=== PATIENT | male | born 1980 | race Caucasian/White ===

== ENCOUNTER 2024-02-27 02:23 | Emergency (ER) | payer SELFPAY ==
[2024-02-27 02:28] VITALS: BP 143/87; PULSE 86; RESP 20; TEMP 37.1; O2SAT 98; BMI 31.1
[2024-02-27 02:55] LABS: Charge for UA Resulting for Rev
[2024-02-27 02:58] LABS: Bilirubin Urine Negative (Negative); Blood Urine Negative (Negative); Glucose Urine UA Negative (Normal); Ketones Urine Trace (Negative); Leukocyte Esterase Urine Negative (Negative); Nitrate Urine Negative (Negative); Protein Urine Negative (Negative); Specific Gravity, Urine 1.024 (1.005-1.030); Urine Appearance Clear (CLEAR); Urine Color Yellow (Yellow); pH Urine 6.5 (5-7)
[2024-02-27 03:03] LABS: Bacteria Urine None Seen /hpf; Hyaline Casts Urine 0.81 /lpf; RBC Urine 0-2 /hpf (0-2); Squamous Epithelial Cell Urine 0-5 /hpf (0-5); WBC Urine 0-5 /hpf (0-5)
[2024-02-27 03:06] LABS: Amphetamines Screen Urine Negative (Negative); Barbiturates Screen Urine Negative (Negative); Benzodiazepines Screen Urine Negative (Negative); Cocaine Screen Urine Negative (Negative); Opiate Screen Urine Negative (Negative); PCP Screen Urine Negative (Negative); THC Screen Urine Negative (Negative)
[2024-02-27 03:50] LABS: Basophils # 0.1 10^3/uL (0.0-0.1); Basophils % 0.8 %; Eosinophils % 0.1 %; Hematocrit 46.1 % (37-53); Lymphocytes # 1.9 10^3/uL (0.8-4.8); Lymphocytes % 22.9 %; Mean Corpuscular HGB Conc 33.2 g/dL (30-55); Mean Corpuscular Hemoglobin 29.4 pg (27-33); Mean Corpuscular Volume 88.7 fl (82-101); Mean Platelet Volume 11.3 fL (7.4-10.4); Monocytes # 0.6 10^3/uL (0.2-0.9); Monocytes % 7.6 %; Neutrophils # 5.67 10^3/uL (1.8-7.7); Neutrophils % 68.1 %; Nucleated Red Blood Cells % 0 %; Platelet Count 297 10^3/cmm (157-399); Red Cell Distribution Width 12.3 % (12.1-15.1); White Blood Count 8.33 10^3/uL (3.29-11.43)
[2024-02-27 04:16] LABS: Alanine Aminotransferase 16 U/L (0-41); Albumin Level 4.1 g/dL (3.5-5.2); Alkaline Phosphatase 98 U/L (40-130); Anion Gap 17.6 (5-19); Aspartate Amino Transferase 16 U/L (0-40); Blood Urea Nitrogen 14 mg/dL (6-20); Calcium 8.6 mg/dL (8.5-10.5); Carbon Dioxide 22 mmol/L (22-29); Chloride 103 mmol/L (98-107); Creatinine Clr Calc Pharmacy 179.2872; Globulin 3.1 g/dL (1.3-4.6); Glomerular Filtration Rate 148.5 mL/min (90-130); Glucose 117 mg/dL (65-115); Osmolality Calculated 290 mOsm/kg (285-295); Potassium 3.6 mmol/L (3.5-5.1); Sodium 139 mmol/L (136-145); Total Bilirubin 0.4 mg/dL (0.15-1.2); Total Protein 7.2 g/dL (6.6-8.7)
[2024-02-27 04:17] LABS: Acetaminophen < 5.0 ug/mL (10-30); Salicylate < 0.3 mg/dL (3-10)
--- NOTE | 2024-02-27 04:40 | PC.NURSE ---
SANDWICHES AND SODA PROVIDED TO PT PER REQUEST, PT DENIES FURTHER NEEDS, NO ACUTE DISTRESS NOTED.
--- NOTE | 2024-02-27 05:14 | W.ED.PSYCHS ---
Documented by User: Leonid Rosado DO 02/27/24 16:02 HPI - Psych General: Chief Complaint: Psychiatric Symptoms Stated Complaint: SI Time Seen by Provider: 02/27/24 03:51 History of Present Illness: 43-year-old male who says that he got out of a neuropsychiatric unit near [place] yesterday. Who presents with continued suicidal ideation he says. At first he says he has no specific plan, but then relates to me something to be with a knife . He states that he was placed on medication and unit, Physical Exam Const: COMMON NORMALS: no acute distress GENERAL APPEARANCE: cooperative; not ill appearing and not frail appearing HENMT: COMMON NORMALS: normocephalic, atraumatic and Normal external nose present HEAD & SCALP: normocephalic and atraumatic FACE & SINUS: normal facial exam and face symmetric NOSE: Normal external nose present Eye: COMMON NORMALS: Equal, round and reactive pupils present and EOMs intact bilaterally PUPIL: Yes Equal, round and reactive pupils present Neck/C-Spine: GENERAL: Yes trachea midline Chest: CHEST: Yes Symmetrical chest wall rise Resp: COMMON NORMALS: normal respiratory effort, No retractions, No use of accessory muscles and clear to auscultation bilaterally AUSCULTATION: clear to auscultation bilaterally Cardio: COMMON NORMALS: regular rate and regular rhythm RATE: regular rate RHYTHM: regular rhythm GI: COMMON NORMALS: Normal to inspection, nondistended, normoactive bowel sounds present Extremity: COMMON NORMALS: no pedal edema Neuro: BELTRAN COMA SCALE: document GCS findings [place] coma scale eye opening: Spontaneous [place] coma scale verbal response: Orientated [place] coma scale motor response: [place] commands [place] coma scale total score: 15 SENSORY EXAM: Yes extremities (intact) Psych: COMMON NORMALS: speech normal SPEECH: Yes normal speech Skin: COMMON NORMALS: no rashes or lesions noted GENERAL SKIN EXAM: no rashes or lesions noted Course Vital Signs: Vital signs: Vital Signs Temperature 98.8 F 02/27/24 02:28 Pulse Rate 72 02/27/24 08:00 Respiratory Rate 17 02/27/24 08:00 Blood Pressure 143/87 02/27/24 02:28 Pulse Oximetry 98 02/27/24 08:00 Oxygen Delivery Me thod Room Air 02/27/24 08:00 MDM - Psych Medical Decision Making 43-year-old male presenting with suicidal ideation. Medically stable. Laboratory is not remarkable. No beds are available at our facility currently. We will seek neuropsychiatric bed elsewhere. In the differential diagnosis suicidal ideation, significant depression, substance abuse, malingering. Lab Data 02/27/24 03:42 02/27/24 03:42 Laboratory Results WBC 8.33 10^3/uL (3.29-11.43) 02/27/24 03:42 RBC 5.20 10^6/uL (3.85-5.65) 02/27/24 03:42 Hgb 15.30 g/dL (11.27-16.99) 02/27/24 03:42 Hct 46.1 % (37-53) 02/27/24 03:42 MCV 88.7 fl (82-101) 02/27/24 03:42 MCH 29.4 pg (27-33) 02/27/24 03:42 MCHC 33.2 g/dL (30-55) 02/27/24 03:42 RDW 12.3 % (12.1-15.1) 02/27/24 03:42 Plt Count 297 10^3/cmm (157-399) 02/27/24 03:42 MPV 11.3 fL (7.4-10.4) H 02/27/24 03:42 Neut % (Auto) 68.1 % 02/27/24 03:42 Lymph % (Auto) 22.9 % 02/27/24 03:42 [place] % (Auto) 7.6 % 02/27/24 03:42 Eos % (Auto) 0.1 % 02/27/24 03:42 Baso % (Auto) 0.8 % 02/27/24 03:42 Neut # (Auto) 5.67 10^3/uL (1.8-7.7) 02/27/24 03:42 Lymph # (Auto) 1.9 10^3/uL (0.8-4.8) 02/27/24 03:42 [place] # (Auto) 0.6 10^3/uL (0.2-0.9) 02/27/24 03:42 Eos # (Auto) 0.0 10^3/uL (0.0-0.8) 02/27/24 03:42 Baso # (Auto) 0.1 10^3/uL (0.0-0.1) 02/27/24 03:42 Nucleated RBC % (auto) 0 % 02/27/24 03:42 Nucleated RBCs # 0.0 /100WBC 02/27/24 03:42 Sodium 139 mmol/L (136-145) 02/27/24 03:42 Potassium 3.6 mmol/L (3.5-5.1) 02/27/24 03:42 Chloride 103 mmol/L (98-107) 02/27/24 03:42 Carbon Dioxide 22 mmol/L (22-29) 02/27/24 03:42 Anion Gap 17.6 (5-19) 02/27/24 03:42 BUN 14 mg/dL (6-20) 02/27/24 03:42 Creatinine 0.6 mg/dL (0.7-1.2) L 02/27/24 03:42 GFR Calculation 148.5 mL/min (90-130) H 02/27/24 03:42 Glucose 117 mg/dL (65-115) H 02/27/24 03:42 Calculated Osmolality 290 mOsm/kg (285-295) 02/27/24 03:42 Calcium 8.6 mg/dL (8.5-10.5) 02/27/24 03:42 Total Bilirubin 0.4 mg/dL (0.15-1.2) 02/27/24 03:42 AST 16 U/L (0-40) 02/27/24 03:42 ALT 16 U/L (0-41) 02/27/24 03:42 Alkaline Phosphatase 98 U/L (40-130) 02/27/24 03:42 Total Protein 7.2 g/dL (6.6-8.7) 02/27/24 03:42 Albumin 4.1 g/dL (3.5-5.2) 02/27/24 03:42 Globulin 3.1 g/dL (1.3-4.6) 02/27/24 03:42 TSH 0.96 uIU/mL (0.27-4.20) 02/27/24 06:03 Urine Color Yellow (Yellow) 02/27/24 02:30 Urine Appearance Clear (CLEAR) 02/27/24 02:30 Urine pH 6.5 (5-7) 02/27/24 02:30 Ur Specific [place] 1.024 (1.005-1.030) 02/27/24 02:30 Urine Protein Negative (Negative) 02/27/24 02:30 Urine Glucose (UA) Negative (Normal) 02/27/24 02:30 Urine Ketones Trace (Negative) 02/27/24 02:30 Urine Blood Negative (Negative) 02/27/24 02:30 Urine Nitrate Negative (Negative) 02/27/24 02:30 Urine Bilirubin Negative (Negative) 02/27/24 02:30 Urine Urobilinogen 1.0 mg/dL (Negative) 02/27/24 02:30 Ur Leukocyte Esterase Negative (Negative) 02/27/24 02:30 Urine RBC 0-2 /hpf (0-2) 02/27/24 02:30 Urine WBC 0-5 /hpf (0-5) 02/27/24 02:30 Ur Squamous Epith Cells 0-5 /hpf (0-5) 02/27/24 02:30 Amorphous Sediment Not Reportable 02/27/24 02:30 Urine Bacteria None seen /hpf (NONE) 02/27/24 02:30 Hyaline Casts 0.81 /lpf 02/27/24 02:30 Salicylates < 0.3 mg/dL (3-10) L 02/27/24 03:42 Urine Opiates Screen Negative ng/mL (Negative) 02/27/24 02:30 Acetaminophen < 5.0 ug/mL (10-30) L 02/27/24 03:42 Ur Barbiturates Screen Negative ng/mL (Negative) 02/27/24 02:30 Ur Phencyclidine Scrn Negative ng/mL (Negative) 02/27/24 02:30 Ur Amphetamines Screen Negative ng/mL (Negative) 02/27/24 02:30 U Benzodiazepines Scrn Negative ng/mL (Negative) 02/27/24 02:30 Urine Cocaine Screen Negative ng/mL (Negative) 02/27/24 02:30 U Marijuana (THC) Screen Negative ng/mL (Negative) 02/27/24 02:30 Ethyl Alcohol < 10 mg/dL (0-10) 02/27/24 06:03 Influenza Type A Ag Negative (Negative) 02/27/24 06:17 Influenza Type B Ag Negative (Negative) 02/27/24 06:17 RSV Antigen Negative (Negative) 02/27/24 06:17 SARS-CoV-2 Ag (Rapid) negative (Negative) 02/27/24 06:17 Discharge Plan Discharge Patient Disposition: er Psychiatric Hosp Clinical Impression: Suicidal ideation, Depression Condition: Stable Sign Out Sign Out Data: Patient Sign Out occurred on 02/27/24 at 08:14. Patient's care was discussed, and care was transferred from Leonid Rosado DO to Riki Gandhi DO. Coding Level of Care Code ED Radio Journalist for Chg Fwd Documented by User: Riki Gandhi DO 02/27/24 13:40 HPI - Psych General: Chief Complaint: Psychiatric Symptoms Stated Complaint: SI Time Seen by Provider: 02/27/24 03:51 Physical Exam Neuro: BELTRAN COMA SCALE: document GCS findings [place] coma scale total score: 15 Course Vital Signs: Vital signs: Vital Signs Temperature 98.8 F 02/27/24 02:28 Pulse Rate 72 02/27/24 08:00 Respiratory Rate 17 02/27/24 08:00 Blood Pressure 143/87 02/27/24 02:28 Pulse Oximetry 98 02/27/24 08:00 Oxygen Delivery Me thod Room Air 02/27/24 08:00 MDM - Psych Medical Decision Making 43-year-old male presenting with suicidal ideation. Medically stable. Laboratory is not remarkable. No beds are available at our facility currently. We will seek neuropsychiatric bed elsewhere. In the differential diagnosis suicidal ideation, significant depression, substance abuse, malingering. Care assumed at change of shift. Patient is medically stable he is expressing suicidal ideation. We do not have any beds available at our facility. Agreeable to admission or transfer to [facility] in [place] via [facility]. Lab Data 02/27/24 03:42 02/27/24 03:42 Laboratory Results WBC 8.33 10^3/uL (3.29-11.43) 02/27/24 03:42 RBC 5.20 10^6/uL (3.85-5.65) 02/27/24 03:42 Hgb 15.30 g/dL (11.27-16.99) 02/27/24 03:42 Hct 46.1 % (37-53) 02/27/24 03:42 MCV 88.7 fl (82-101) 02/27/24 03:42 MCH 29.4 pg (27-33) 02/27/24 03:42 MCHC 33.2 g/dL (30-55) 02/27/24 03:42 RDW 12.3 % (12.1-15.1) 02/27/24 03:42 Plt Count 297 10^3/cmm (157-399) 02/27/24 03:42 MPV 11.3 fL (7.4-10.4) H 02/27/24 03:42 Neut % (Auto) 68.1 % 02/27/24 03:42 Lymph % (Auto) 22.9 % 02/27/24 03:42 [place] % (Auto) 7.6 % 02/27/24 03:42 Eos % (Auto) 0.1 % 02/27/24 03:42 Baso % (Auto) 0.8 % 02/27/24 03:42 Neut # (Auto) 5.67 10^3/uL (1.8-7.7) 02/27/24 03:42 Lymph # (Auto) 1.9 10^3/uL (0.8-4.8) 02/27/24 03:42 [place] # (Auto) 0.6 10^3/uL (0.2-0.9) 02/27/24 03:42 Eos # (Auto) 0.0 10^3/uL (0.0-0.8) 02/27/24 03:42 Baso # (Auto) 0.1 10^3/uL (0.0-0.1) 02/27/24 03:42 Nucleated RBC % (auto) 0 % 02/27/24 03:42 Nucleated RBCs # 0.0 /100WBC 02/27/24 03:42 Sodium 139 mmol/L (136-145) 02/27/24 03:42 Potassium 3.6 mmol/L (3.5-5.1) 02/27/24 03:42 Chloride 103 mmol/L (98-107) 02/27/24 03:42 Carbon Dioxide 22 mmol/L (22-29) 02/27/24 03:42 Anion Gap 17.6 (5-19) 02/27/24 03:42 BUN 14 mg/dL (6-20) 02/27/24 03:42 Creatinine 0.6 mg/dL (0.7-1.2) L 02/27/24 03:42 GFR Calculation 148.5 mL/min (90-130) H 02/27/24 03:42 Glucose 117 mg/dL (65-115) H 02/27/24 03:42 Calculated Osmolality 290 mOsm/kg (285-295) 02/27/24 03:42 Calcium 8.6 mg/dL (8.5-10.5) 02/27/24 03:42 Total Bilirubin 0.4 mg/dL (0.15-1.2) 02/27/24 03:42 AST 16 U/L (0-40) 02/27/24 03:42 ALT 16 U/L (0-41) 02/27/24 03:42 Alkaline Phosphatase 98 U/L (40-130) 02/27/24 03:42 Total Protein 7.2 g/dL (6.6-8.7) 02/27/24 03:42 Albumin 4.1 g/dL (3.5-5.2) 02/27/24 03:42 Globulin 3.1 g/dL (1.3-4.6) 02/27/24 03:42 TSH 0.96 uIU/mL (0.27-4.20) 02/27/24 06:03 Urine Color Yellow (Yellow) 02/27/24 02:30 Urine Appearance Clear (CLEAR) 02/27/24 02:30 Urine pH 6.5 (5-7) 02/27/24 02:30 Ur Specific [place] 1.024 (1.005-1.030) 02/27/24 02:30 Urine Protein Negative (Negative) 02/27/24 02:30 Urine Glucose (UA) Negative (Normal) 02/27/24 02:30 Urine Ketones Trace (Negative) 02/27/24 02:30 Urine Blood Negative (Negative) 02/27/24 02:30 Urine Nitrate Negative (Negative) 02/27/24 02:30 Urine Bilirubin Negative (Negative) 02/27/24 02:30 Urine Urobilinogen 1.0 mg/dL (Negative) 02/27/24 02:30 Ur Leukocyte Esterase Negative (Negative) 02/27/24 02:30 Urine RBC 0-2 /hpf (0-2) 02/27/24 02:30 Urine WBC 0-5 /hpf (0-5) 02/27/24 02:30 Ur Squamous Epith Cells 0-5 /hpf (0-5) 02/27/24 02:30 Amorphous Sediment Not Reportable 02/27/24 02:30 Urine Bacteria None seen /hpf (NONE) 02/27/24 02:30 Hyaline Casts 0.81 /lpf 02/27/24 02:30 Salicylates < 0.3 mg/dL (3-10) L 02/27/24 03:42 Urine Opiates Screen Negative ng/mL (Negative) 02/27/24 02:30 Acetaminophen < 5.0 ug/mL (10-30) L 02/27/24 03:42 Ur Barbiturates Screen Negative ng/mL (Negative) 02/27/24 02:30 Ur Phencyclidine Scrn Negative ng/mL (Negative) 02/27/24 02:30 Ur Amphetamines Screen Negative ng/mL (Negative) 02/27/24 02:30 U Benzodiazepines Scrn Negative ng/mL (Negative) 02/27/24 02:30 Urine Cocaine Screen Negative ng/mL (Negative) 02/27/24 02:30 U Marijuana (THC) Screen Negative ng/mL (Negative) 02/27/24 02:30 Ethyl Alcohol < 10 mg/dL (0-10) 02/27/24 06:03 Influenza Type A Ag Negative (Negative) 02/27/24 06:17 Influenza Type B Ag Negative (Negative) 02/27/24 06:17 RSV Antigen Negative (Negative) 02/27/24 06:17 SARS-CoV-2 Ag (Rapid) negative (Negative) 02/27/24 06:17 No radiology studies performed this visit Discharge Plan Discharge Patient Disposition: Xfer Psychiatric Hosp Clinical Impression: Suicidal ideation, Depression Condition: Stable Sign Out Sign Out Data: Patient Sign Out occurred on 02/27/24 at 08:14. Patient's care was discussed, and care was transferred from Leonid Rosado DO to Riki Gandhi DO. Coding Level of Care Code ED Radio Journalist for Ami Gunter
--- NOTE | 2024-02-27 05:54 | ECG_ITS ---
[facility] Test Date: 2024-02-27 Pat Name: Herman Edmond Department: Room: Gender: Male Pst Specialist: : 1980 Requested By: Leonid Tolliver Order Number: [id number] Adriana MD: Jh Abdi M.D. Measurements Intervals [place] Rate: 76 P: 51 MT: 156 QRS: 43 QRSD: 112 T: 61 QT: 382 QTc: 430 Interpretive Statements SINUS RHYTHM WITH SINUS ARRHYTHMIA POSSIBLE RIGHT VENTRICULAR CONDUCTION DELAY [RSR (QR) IN V1/V2] SEPTAL MYOCARDIAL INFARCTION , PROBABLY OLD [40+ ms Q WAVE IN V1/V2] No previous ECG available for comparison Electronically Signed On 02-27-2024 7:20:44 CDT by Jh Abdi M.D. [id number]
[2024-02-27 06:37] LABS: Thyroid Stimulating Hormone 0.96 uIU/mL (0.27-4.20)
[2024-02-27 06:38] LABS: Alcohol Level < 10 mg/dL (0-10)
[2024-02-27 06:45] LABS: SARS Covid-2 Antigen negative (Negative)
[2024-02-27 06:51] LABS: Influenza A by IFA Negative (Negative); Influenza B by IFA Negative (Negative)
[2024-02-27 06:52] LABS: RSV Transfer Patient (ED) Negative (Negative)
[2024-02-27 08:00] VITALS: PULSE 72; RESP 17; O2SAT 98
--- NOTE | 2024-02-27 11:11 | PC.NURSE ---
pt resting in room 9, AOx4, verbally states will go to [facility] in [place] for placement, pt signed voluntary form sent by [facility]
--- NOTE | 2024-02-27 12:13 | PC.NURSE ---
Report called to Yessi Bowden RN at [facility], no further questions. pt updated with status of transfer.
[2024-02-27 17:53] VITALS: BP 122/92; PULSE 83; TEMP 36.7; O2SAT 97
[2024-02-28 04:00] VITALS: BP 124/67; PULSE 77; RESP 16; O2SAT 97
== END 2024-02-28 07:44 ==
PROVIDERS: Emergency Medicine; Emergency Provider Family Medicine
DX: R45.851 Suicidal ideations (principal); F32.A Depression, unspecified; Z11.52 Encounter for screening for COVID-19
CPT/HCPCS: 36415; 80053; 80306; 80307; 81003; 81015; 84443; 85025; 87426; 87804; 87899; 93005; 99285

== ENCOUNTER 2024-03-03 14:23 | Inpatient (IN) | payer BC, SELFPAY ==
[2024-03-03 14:32] VITALS: BP 133/89; PULSE 105; RESP 16; TEMP 36.9; O2SAT 96; BMI 31.9
--- NOTE | 2024-03-03 15:05 | W.ED.PSYCHS ---
HPI - Psych General: Chief Complaint: Psychiatric Symptoms Stated Complaint: SI Time Seen by Provider: 03/03/24 14:51 Mode of arrival: ambulatory Limitations: no limitations History of Present Illness: 43-year-old male 43-year-old male who states that has been having suicidal ideations over the last 2 weeks he states that he has a plan of cutting his wrist with a knife. He was recently admitted to [facility] he denies any worsening proving factors. Patient is currently on Prozac Associated symptoms: Reports depression and suicidal ideation Related Data Allergies Allergy/AdvReac Type Severity Reaction Status Date / Time No Known Allergies Allergy Verified 03/03/24 14:36 Review of Systems Const: Denies: fever(s), chills, body aches or change in appetite ENMT: Denies: throat pain or dental pain Card: Denies: chest pain Resp: Denies: dyspnea GI: Denies: abdominal pain, nausea, vomiting or diarrhea Musc: Denies: neck pain or back pain Skin/Breast: Denies: rash Neuro: Denies: headache(s) Psych: Reports: depression and suicidal ideation Physical Exam Const: COMMON NORMALS: no acute distress, patient oriented x3 and healthy appearing HENMT: COMMON NORMALS: normocephalic and atraumatic HEAD & SCALP: normocephalic and atraumatic Neck/C-Spine: COMMON NORMALS: full ROM and supple Chest: COMMONS NORMALS: normal inspection of the chest Resp: COMMON NORMALS: normal respiratory effort Cardio: COMMON NORMALS: regular rate, regular rhythm and No murmurs present (Cardio) RATE: regular rate RHYTHM: regular rhythm Extremity: COMMON NORMALS: normal to inspection and full ROM Neuro: COMMON NORMALS: patient oriented x3, moves all extremities and no focal motor deficits Psych: COMMON NORMALS: mental status grossly normal, Normal thought process present and cooperative MOOD & AFFECT: Yes depressed mood THOUGHT PROCESS: Normal thought process present THOUGHT CONTENT: Yes Suicidality present Skin: COMMON NORMALS: no rashes or lesions noted and no wounds GENERAL SKIN EXAM: no rashes or lesions noted Course Vital Signs: Vital signs: Vital Signs Temperature 98.4 F 03/03/24 14:32 Pulse Rate 105 H 03/03/24 14:32 Respiratory Rate 16 03/03/24 14:32 Blood Pressure 133/89 03/03/24 14:32 Pulse Oximetry 96 03/03/24 14:32 Oxygen Delivery Me thod Room Air 03/03/24 14:32 MDM - Psych Medical Decision Making Patient presents for suicidal ideations he is placed on a 96-hour hold he is medically cleared I did speak to psychiatrist will admit at this time Medical Records I reviewed the patient's medical records. Lab Data I reviewed the patient's lab results. 03/03/24 15:44 03/03/24 15:44 Laboratory Results WBC 8.26 10^3/uL (3.29-11.43) 03/03/24 15:44 RBC 5.33 10^6/uL (3.85-5.65) 03/03/24 15:44 Hgb 15.90 g/dL (11.27-16.99) 03/03/24 15:44 Hct 48.2 % (37-53) 03/03/24 15:44 MCV 90.4 fl (82-101) 03/03/24 15:44 MCH 29.8 pg (27-33) 03/03/24 15:44 MCHC 33.0 g/dL (30-55) 03/03/24 15:44 RDW 12.8 % (12.1-15.1) 03/03/24 15:44 Plt Count 258 10^3/cmm (157-399) 03/03/24 15:44 MPV 11.9 fL (7.4-10.4) H 03/03/24 15:44 Neut % (Auto) 57.7 % 03/03/24 15:44 Lymph % (Auto) 27.2 % 03/03/24 15:44 [place] % (Auto) 11.7 % 03/03/24 15:44 Eos % (Auto) 2.3 % 03/03/24 15:44 Baso % (Auto) 0.6 % 03/03/24 15:44 Neut # (Auto) 4.76 10^3/uL (1.8-7.7) 03/03/24 15:44 Lymph # (Auto) 2.3 10^3/uL (0.8-4.8) 03/03/24 15:44 [place] # (Auto) 1.0 10^3/uL (0.2-0.9) H 03/03/24 15:44 Eos # (Auto) 0.2 10^3/uL (0.0-0.8) 03/03/24 15:44 Baso # (Auto) 0.1 10^3/uL (0.0-0.1) 03/03/24 15:44 Nucleated RBC % (auto) 0 % 03/03/24 15:44 Nucleated RBCs # 0.0 /100WBC 03/03/24 15:44 Urine Opiates Screen Negative ng/mL (Negative) 03/03/24 14:55 Ur Barbiturates Screen Negative ng/mL (Negative) 03/03/24 14:55 Ur Phencyclidine Scrn Negative ng/mL (Negative) 03/03/24 14:55 Ur Amphetamines Screen Negative ng/mL (Negative) 03/03/24 14:55 U Benzodiazepines Scrn Negative ng/mL (Negative) 03/03/24 14:55 Urine Cocaine Screen Negative ng/mL (Negative) 03/03/24 14:55 U Marijuana (THC) Screen Negative ng/mL (Negative) 03/03/24 14:55 No radiology studies performed this visit Discharge Plan Discharge Patient Disposition: Admitted As Inpatient Admit Provider: Pedro Navarro Clinical Impression: Suicidal ideation Condition: Stable Coding Level of Care Code ED Customer Service And Sales Consultant for Ami Gunter
[2024-03-03 15:35] LABS: Amphetamines Screen Urine Negative (Negative); Barbiturates Screen Urine Negative (Negative); Benzodiazepines Screen Urine Negative (Negative); Cocaine Screen Urine Negative (Negative); Opiate Screen Urine Negative (Negative); PCP Screen Urine Negative (Negative); THC Screen Urine Negative (Negative)
[2024-03-03 16:06] LABS: Basophils # 0.1 10^3/uL (0.0-0.1); Basophils % 0.6 %; Eosinophils # 0.2 10^3/uL (0.0-0.8); Eosinophils % 2.3 %; Hematocrit 48.2 % (37-53); Lymphocytes # 2.3 10^3/uL (0.8-4.8); Lymphocytes % 27.2 %; Mean Corpuscular Hemoglobin 29.8 pg (27-33); Mean Corpuscular Volume 90.4 fl (82-101); Mean Platelet Volume 11.9 fL (7.4-10.4); Monocytes % 11.7 %; Neutrophils # 4.76 10^3/uL (1.8-7.7); Neutrophils % 57.7 %; Nucleated Red Blood Cells % 0 %; Platelet Count 258 10^3/cmm (157-399); Red Blood Count 5.33 10^6/uL (3.85-5.65); Red Cell Distribution Width 12.8 % (12.1-15.1); White Blood Count 8.26 10^3/uL (3.29-11.43)
[2024-03-03 16:25] LABS: Alanine Aminotransferase 13 U/L (0-41); Albumin Level 4.5 g/dL (3.5-5.2); Alkaline Phosphatase 93 U/L (40-130); Anion Gap 16.4 (5-19); Aspartate Amino Transferase 18 U/L (0-40); Blood Urea Nitrogen 16 mg/dL (6-20); Calcium 9.1 mg/dL (8.5-10.5); Carbon Dioxide 23 mmol/L (22-29); Chloride 107 mmol/L (98-107); Creatinine Clr Calc Pharmacy 217.6394; Glomerular Filtration Rate 183.2 mL/min (90-130); Glucose 108 mg/dL (65-115); Osmolality Calculated 296 mOsm/kg (285-295); Potassium 4.4 mmol/L (3.5-5.1); Sodium 142 mmol/L (136-145); Total Bilirubin 0.4 mg/dL (0.15-1.2); Total Protein 7.5 g/dL (6.6-8.7)
[2024-03-03 16:30] LABS: Acetaminophen < 5.0 ug/mL (10-30); Alcohol Level < 10 mg/dL (0-10); Salicylate < 0.3 mg/dL (3-10)
--- NOTE | 2024-03-03 16:37 | PC.NURSE ---
96 hr rights reviewed with patient @1603 with assistance of PUPIL PERSONNEL SERVICES DIRECTORENDY Parker. All education reviewed with patient. No verbalized questions or concerns at this time. Patient copy left @bedside with patient. No needs at this time.
[2024-03-03 16:41] VITALS: BP 115/78; PULSE 98; O2SAT 95
[2024-03-03 16:59] VITALS: BP 135/84; PULSE 98; RESP 18; TEMP 36.7; O2SAT 96
--- NOTE | 2024-03-03 17:57 | PC.NURSE ---
Patient denies avh and hi. He initially denied si, but quickly changed his answer to yes. Denied any plan at this time. When asked if anything had changed or had triggered this he stated that he thinks it's because he recently got out of jail and is on parole for a domestic violence charge. Patient was very evasive when asked questions about his living situation. He eventually stated, I was living in a tent...no. I don't have a home. 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 This RN asked him if he ever drank alcohol and he said he did. He was then asked when he last drank to which he replied, about 15 minutes ago. This RN asked what he drank and he stated, 2 cokes. Patient appeared to have trouble with his train of thought as he would often go back to a question that had been asked much earlier in the assessment. He answered some questions inappropriately as if he was not fully listening or was distracted. It was noted that he had a rash throughout his abdomen and his buttocks. Patient said it did not itch and there was no visible oozing and the rash was not raised. He told staff he had been in the [facility]. This RN instructed him to let staff know if the rash became itchy, spread, or began oozing at all.
[2024-03-03 19:36] VITALS: BP 119/84; PULSE 90; RESP 18; TEMP 36.6; O2SAT 96
[2024-03-04 06:00] VITALS: BP 124/83; PULSE 82; RESP 16; TEMP 36.5; O2SAT 97
[2024-03-04] MEDS: nicotine 2 mg Gum BUCCAL ×2 (08:22→17:11)
[2024-03-04] MEDS: hyDROXYzine 25 mg Capsule 50 MG PO ×2 (09:23→20:21)
[2024-03-04] MEDS: fluoxetine 10 mg Capsule PO (09:23)
--- NOTE | 2024-03-04 09:24 | PC.NURSE ---
Patient reports anxiety 12/06. Administered vistaril 50mg PO to patient. Will continue to monitor.
--- NOTE | 2024-03-04 13:29 | W.PM.NPUH&PS ---
Providers/Chief Complaint Admitting Physician: Pedro Navarro MD Chief Complaint: SI HPI NPU History of Present Illness Herman Edmond Sr is a 43 year old male who presented to the emergency department with the following report: Chief Complaint: Psychiatric Symptoms Stated Complaint: SI Time Seen by Provider: 03/03/24 14:51 Mode of arrival: ambulatory Limitations: no limitations History of Present Illness: 43-year-old male 43-year-old male who states that has been having suicidal ideations over the last 2 weeks he states that he has a plan of cutting his wrist with a knife. He was recently admitted to [facility] he denies any worsening proving factors. Patient is currently on Prozac Associated symptoms: Reports depression and suicidal ideation. He was admitted to the neuropsychiatric unit for definitive treatment of those issues. He presents today unknown to the inpatient or outpatient services from any recent encounters. No known inpatient services here. He presents today reporting: Chief complaint The patient is struggling with feelings of paranoia and depression, and is having difficulty adjusting to society after being released from intermediate. He is also experiencing sleep issues. History of the present complaint The patient, a 43-year-old male, presented with a history of depression and anxiety, which he reported began after his release from intermediate. He has been struggling with adjusting to society after being incarcerated for 6.5 years. He has been hospitalized three times in the past three weeks due to suicidal ideation. The patient reported feeling paranoid and expressed a belief that everyone is out to get him. However, he denied experiencing hallucinations or hearing voices. He also mentioned experiencing nightmares related to his time in intermediate. In terms of medication, the patient reported currently taking Prozac and Vistaril. He also mentioned previous use of a medication he referred to as Closet becker, which the doctor identified as possibly being clozapine or clonazepam. He also mentioned previous use of benzodiazepines. He expressed a desire for a recommendation for a good sleeping medication, as he has been struggling with sleep. The patient reported a history of substance use, including tobacco and alcohol. He mentioned having been in rehab once and having had a few DUIs. However, he reported that he has been abstaining from alcohol for several years now. The patient also mentioned a significant event in his life, the loss of a pair of expensive earbuds, which seemed to have a significant emotional impact on him. He did not elaborate on why this event was so impactful, but he brought it up multiple times during the consultation. In terms of his personal life, the patient reported having been once and having two adult sons. He mentioned that he had been in contact with his sons recently. He also mentioned experiencing significant changes in his life since his release from intermediate, including the of his grandmother. The patient reported having no known allergies to medication. He expressed a desire for a recommendation for a good sleeping medication, as he has been struggling with sleep. He also expressed a desire for a recommendation for a medication to help with his feelings of paranoia. The doctor suggested starting him on Ambega and continuing with his current medications, Prozac and Vistaril. The doctor also suggested giving him Trazodone for his sleep issues. Mental health history The patient has a history of depression and anxiety, which began after his release from intermediate. He has been hospitalized three times in the past three weeks due to suicidal ideation. He has been on Prozac and Vistaril, and has previously taken benzodiazepines for anxiety. He has also been on a mood stabilizer, possibly Clozapine. He has a history of outpatient treatment with a counselor or therapist. Social history The patient has a history of tobacco use and has previously struggled with alcohol consumption. He has been in rehab once and has had several DUIs. He has been incarcerated multiple times, with the longest sentence being 6.5 years. He has been homeless since his release from intermediate. He has held a job for four years in the past, working at a [employer] plant. He has two biological children with whom he maintains a relationship. Meds NPU Home Medications Medication Instructions Recorded Confirmed Last Taken Type No Known Home Medications 03/04/24 03/04/24 Unknown History Allergies Allergy/AdvReac Type Severity Reaction Status Date / Time No Known Allergies Allergy Verified 03/03/24 14:36 Mental Status Exam MSE Comments: This is an obese white male in hospital scrubs with limited grooming and eye contact. No abnormal movements except for mild psychomotor agitation. Cooperative with exam in mild to moderate distress. Speech was mostly decreased rate and volume. Mood described as a little down, affect slightly odd and guarded. Thought process was linear and mostly organized. Thought content: Patient denied suicidal or homicidal ideation , there were no delusions reported but concerns for paranoid or persecutory delusions noted, he denied auditory and visual hallucinations. The patient exhibits signs of depression and paranoia. He denies any hallucinations or delusions. He reports feeling like people are out to get him Attention and concentration were intact and memory appeared mostly reliable but none were formally tested. He is alert and oriented x 3. Insight and judgment limited, impulse control is limited. Vitals/I&O/Wt Last Vital Signs Temp 97.7 F 03/04/24 06:00 Pulse 82 03/04/24 06:00 Resp 16 03/04/24 06:00 BP 124/83 03/04/24 06:00 Pulse Ox 97 03/04/24 06:00 O2 Del Method Room Air 03/04/24 06:00 Weight last 48 hrs Weight 95.254 kg Data NPU 03/03/24 15:44 03/03/24 15:44 A&P Assessment and plan (1) Suicidal ideation: (2) Depression: (3) Paranoia: (4) Psychosis: Plan This is a 43-year-old white male who presented denying significant mental health history till recently possibly. The patient is struggling with significant mental health issues, including depression, anxiety, and paranoia. These issues appear to have been exacerbated by his recent release from intermediate and his difficulty adjusting to society. His sleep issues may be a symptom of his mental health issues or a separate issue that needs to be addressed. He is also homeless and some of his behavior may be consistent with malingering. 1. Consider antipsychotic. Consider Invega. 2. Continue every 15 minute checks for safety. 3. Encourage individual, group and milieu therapies. 4. Obtain collateral information on what his baseline actually is. 5. Encourage sober living treatment after discharge at the highest level of care to which he is willing to commit. Involuntary Hold Information 96 Hour Hold: 96 Hour Involuntary Admission: Yes 96 Hour Hold Ending Date: 03/09/24 96 Hour Hold Ending Time: 15:00 Attestations NPU Medical Necessity Statement*: Inpatient hospitalization is medically necessary and the clinically appropriate intervention at this time. We will monitor medication to make changes as indicated. Patient will be in the hospital for over two midnights. His likely length of stay 3-5 days. Coding Level of Care Code Acute Code for [facility] Fw Diagnoses Suicidal ideation R45.851 Depression F32.A Paranoia F22 Psychosis F29
[2024-03-04 13:48] VITALS: BP 124/82; PULSE 77; RESP 18; TEMP 36.6; O2SAT 97
[2024-03-04] MEDS: acetaminophen 325 mg Tablet 650 MG PO (14:14)
[2024-03-04] MEDS: ibuprofen 600 mg Tablet PO (16:58)
[2024-03-04 20:15] VITALS: BP 133/68; PULSE 74; RESP 18; TEMP 36.6; O2SAT 99
[2024-03-04] MEDS: OLANZapine 10 mg TABLET 15 MG PO (20:21)
[2024-03-05] MEDS: acetaminophen 325 mg Tablet 650 MG PO (04:39)
[2024-03-05 06:00] VITALS: BP 134/77; PULSE 58; RESP 18; TEMP 36.6; O2SAT 95
--- NOTE | 2024-03-05 06:56 | P.NPUPN_ITS ---
Subjective NPU 2 Subjective: Patient present today reporting that he is doing okay. He denied any issues with the Invega thus far. He denied any side effects to the medication we talked about medications that might assist him with his sleep. He brought up the possibility of sober living treatment including [facility]. We discussed that the social work team would be here on Thursday and they can assist him in filling out applications for possible facilities. Mental Status Exam 2 MSE Comments: This is an obese white male in hospital scrubs with limited grooming and eye contact. No abnormal movements except for mild psychomotor agitation. Cooperative with exam in mild to moderate distress. Speech was mostly decreased rate and volume. Mood described as a little down, affect slightly odd and guarded. Thought process was linear and mostly organized. Thought content: Patient denied suicidal or homicidal ideation , there were no delusions reported but concerns for paranoid or persecutory delusions noted, he denied auditory and visual hallucinations. The patient exhibits signs of depression and paranoia. He denies any hallucinations or delusions. He reports feeling like people are out to get him Attention and concentration were intact and memory appeared mostly reliable but none were formally tested. He is alert and oriented x 3. Insight and judgment limited, impulse control is limited. Vitals/I&O/Wt Last Vital Signs Temp 97.8 F 03/05/24 06:00 Pulse 58 L 03/05/24 06:00 Resp 18 03/05/24 06:00 BP 134/77 03/05/24 06:00 Pulse Ox 95 03/05/24 06:00 O2 Del Method Room Air 03/04/24 13:48 Weight last 48 hrs Weight 95.254 kg Data NPU 03/03/24 15:44 03/03/24 15:44 A&P Assessment and plan (1) Suicidal ideation: (2) Depression: (3) Paranoia: (4) Psychosis: Plan This is a 43-year-old white male who presented denying significant mental health history till recently possibly. The patient is struggling with significant mental health issues, including depression, anxiety, and paranoia. These issues appear to have been exacerbated by his recent release from detention and his difficulty adjusting to society. His sleep issues may be a symptom of his mental health issues or a separate issue that needs to be addressed. He is also homeless and some of his behavior may be consistent with malingering. 1. Started Invega 6 mg p.o. daily. 2. Continue every 15 minute checks for safety. 3. Encourage individual, group and milieu therapies. 4. Obtain collateral information on what his baseline actually is. 5. Encourage sober living treatment after discharge at the highest level of care to which he is willing to commit. Patient interested in working with social work team on Thursday to consider sober living treatment. Involuntary Hold Information 2 96 Hour Hold: 96 Hour Involuntary Admission: Yes 96 Hour Hold Ending Date: 03/09/24 96 Hour Hold Ending Time: 15:00 Attestations NPU 2 Medical Necessity Statement*: Inpatient hospitalization is medically necessary and the clinically appropriate intervention at this time. We will monitor medication to make changes as indicated. His likely length of stay 3-5 days. Coding Level of Care Code Acute Code for [facility] Fwd Diagnoses Suicidal ideation R45.851 Depression F32.A Paranoia F22 Psychosis F29
[2024-03-05] MEDS: ibuprofen 600 mg Tablet PO ×2 (07:27→16:31)
[2024-03-05] MEDS: nicotine 2 mg Gum BUCCAL ×2 (08:04→14:26)
[2024-03-05] MEDS: fluoxetine 10 mg Capsule PO (08:04)
[2024-03-05] MEDS: paliperidone ER 6 mg Tablet PO (13:15)
[2024-03-05 14:00] VITALS: BP 131/86; PULSE 84; RESP 16; TEMP 36.5; O2SAT 96
--- NOTE | 2024-03-05 14:27 | PC.NURSE ---
Pt was hesitant to take the Invega 6mg tab that was prescribed to him. Pt stated that he would take the medication if it was prescribed by a Real Doctor. Pt states that in other facilities there were fake doctors that prescribed pills to him. Pt was educated on this medication and pt agreed to take the scheduled dose.
[2024-03-05 19:47] VITALS: BP 129/80; PULSE 69; RESP 16; TEMP 36.3; O2SAT 97
[2024-03-05] MEDS: OLANZapine 10 mg TABLET 15 MG PO (20:21)
[2024-03-06] MEDS: ibuprofen 600 mg Tablet PO ×2 (04:35→18:20)
[2024-03-06 06:00] VITALS: BP 127/89; PULSE 79; RESP 18; TEMP 36.4; O2SAT 97
[2024-03-06] MEDS: paliperidone ER 6 mg Tablet PO (08:24)
[2024-03-06] MEDS: fluoxetine 10 mg Capsule PO (08:24)
--- NOTE | 2024-03-06 09:55 | P.NPUPN_ITS ---
Subjective NPU 2 Subjective: Patient presented today reporting that he is doing okay. He reports that he is having some anxiety and we did discuss the risks, benefits and alternatives of initiating propranolol as needed and he understood and agreed to proceed as is documented in this note. He does report that he is tolerating the Invega fine and denied any specific side effects to that. He reports she still having an interest in rehab and we discussed the treatment team returning tomorrow and that they would be able to work with him on those issues. Mental Status Exam 2 MSE Comments: This is an obese white male in hospital scrubs with limited grooming and eye contact. No abnormal movements except for mild psychomotor agitation. Cooperative with exam in mild to moderate distress. Speech was mostly decreased rate and volume. Mood described as a little down, affect slightly odd and guarded. Thought process was linear and mostly organized. Thought content: Patient denied suicidal or homicidal ideation , there were no delusions reported but concerns for paranoid or persecutory delusions noted, he denied auditory and visual hallucinations. The patient exhibits signs of depression and paranoia. He denies any hallucinations or delusions. He reports feeling like people are out to get him Attention and concentration were intact and memory appeared mostly reliable but none were formally tested. He is alert and oriented x 3. Insight and judgment limited, impulse control is limited. Vitals/I&O/Wt Last Vital Signs Temp 97.5 F L 03/06/24 06:00 Pulse 79 03/06/24 06:00 Resp 18 03/06/24 06:00 BP 127/89 03/06/24 06:00 Pulse Ox 97 03/06/24 06:00 O2 Del Method Room Air 03/06/24 06:00 Weight last 48 hrs Weight 97.125 kg Data NPU 03/03/24 15:44 03/03/24 15:44 A&P Assessment and plan (1) Suicidal ideation: (2) Depression: (3) Paranoia: (4) Psychosis: Plan This is a 43-year-old white male who presented denying significant mental health history till recently possibly. The patient is struggling with significant mental health issues, including depression, anxiety, and paranoia. These issues appear to have been exacerbated by his recent release from custodial and his difficulty adjusting to society. His sleep issues may be a symptom of his mental health issues or a separate issue that needs to be addressed. He is also homeless and some of his behavior may be consistent with malingering. 1. Started Invega 6 mg p.o. daily. Initiate propranolol 20 mg p.o. 3 times daily as needed for anxiety. 2. Continue every 15 minute checks for safety. 3. Encourage individual, group and milieu therapies. 4. Obtain collateral information on what his baseline actually is. 5. Encourage sober living treatment after discharge at the highest level of care to which he is willing to commit. Patient interested in working with social work team on Thursday to consider sober living treatment. Involuntary Hold Information 2 96 Hour Hold: 96 Hour Involuntary Admission: Yes 96 Hour Hold Ending Date: 03/09/24 96 Hour Hold Ending Time: 15:00 Attestations NPU 2 Medical Necessity Statement*: Inpatient hospitalization is medically necessary and the clinically appropriate intervention at this time. We will monitor medication to make changes as indicated. His likely length of stay 3-5 days. Coding Level of Care Code Acute Code for [facility] Fw Diagnoses Suicidal ideation R45.851 Depression F32.A Paranoia F22 Psychosis F29
[2024-03-06] MEDS: nicotine 2 mg Gum BUCCAL (13:10)
[2024-03-06 14:00] VITALS: BP 133/90; PULSE 88; RESP 16; TEMP 36.4; O2SAT 96
[2024-03-06 20:04] VITALS: BP 134/91; PULSE 83; RESP 18; TEMP 36.3; O2SAT 97
[2024-03-06] MEDS: OLANZapine 10 mg TABLET 15 MG PO (20:04)
[2024-03-07 06:00] VITALS: BP 132/93; PULSE 79; RESP 18; TEMP 36.6; O2SAT 96
[2024-03-07] MEDS: paliperidone ER 6 mg Tablet PO (08:26)
[2024-03-07] MEDS: fluoxetine 10 mg Capsule PO (08:26)
[2024-03-07 14:00] VITALS: BP 119/83; PULSE 105; RESP 18; TEMP 36.6; O2SAT 95
[2024-03-07] MEDS: ibuprofen 600 mg Tablet PO (18:49)
[2024-03-07 19:19] VITALS: BP 120/88; PULSE 87; RESP 16; TEMP 36.3; O2SAT 96
[2024-03-07] MEDS: nicotine 2 mg Gum BUCCAL (19:26)
[2024-03-07] MEDS: OLANZapine 10 mg TABLET 15 MG PO (20:00)
--- NOTE | 2024-03-07 20:07 | P.NPUPN_ITS ---
Subjective NPU 2 Subjective: Patient presented today reporting that he is doing okay. He reported feeling less of the paranoia and had discussed the possibility of discontinuing the Invega. We discussed the importance of vet and treating his psychosis. We discussed the risks, benefits and alternatives of changing it to bedtime and he understood and agreed to proceed as is documented in this note. We continue to work with the social work team on sober living treatment possibilities. He could not articulate if there was any issue with the Invega as far as side effects that made him consider the change. Mental Status Exam 2 MSE Comments: This is an obese white male in hospital scrubs with limited grooming and eye contact. No abnormal movements except for mild psychomotor agitation. Cooperative with exam in mild to moderate distress. Speech was mostly decreased rate and volume. Mood described as a little down, affect slightly odd and guarded. Thought process was linear and mostly organized. Thought content: Patient denied suicidal or homicidal ideation , there were no delusions reported but concerns for paranoid or persecutory delusions noted, he denied auditory and visual hallucinations. The patient exhibits signs of depression and paranoia. He denies any hallucinations or delusions. He reports feeling like people are out to get him Attention and concentration were intact and memory appeared mostly reliable but none were formally tested. He is alert and oriented x 3. Insight and judgment limited, impulse control is limited. Vitals/I&O/Wt Last Vital Signs Temp 97.4 F L 03/07/24 19:19 Pulse 87 03/07/24 19:19 Resp 16 03/07/24 19:19 BP 120/88 03/07/24 19:19 Pulse Ox 96 03/07/24 19:19 O2 Del Method Room Air 03/07/24 19:19 Weight last 48 hrs Weight 97.125 kg Data NPU 03/03/24 15:44 03/03/24 15:44 A&P Assessment and plan (1) Suicidal ideation: (2) Depression: (3) Paranoia: (4) Psychosis: Plan This is a 43-year-old white male who presented denying significant mental health history till recently possibly. The patient is struggling with significant mental health issues, including depression, anxiety, and paranoia. These issues appear to have been exacerbated by his recent release from shelter and his difficulty adjusting to society. His sleep issues may be a symptom of his mental health issues or a separate issue that needs to be addressed. He is also homeless and some of his behavior may be consistent with malingering. 1. Started Invega 6 mg p.o. daily. Will move Invega to bedtime. Initiated propranolol 20 mg p.o. 3 times daily as needed for anxiety. 2. Continue every 15 minute checks for safety. 3. Encourage individual, group and milieu therapies. 4. Obtain collateral information on what his baseline actually is. 5. Encourage sober living treatment after discharge at the highest level of care to which he is willing to commit. Patient interested in working with social work team on Thursday to consider sober living treatment. Involuntary Hold Information 2 96 Hour Hold: 96 Hour Involuntary Admission: Yes 96 Hour Hold Ending Date: 03/09/24 96 Hour Hold Ending Time: 15:00 Attestations NPU 2 Medical Necessity Statement*: Inpatient hospitalization is medically necessary and the clinically appropriate intervention at this time. We will monitor medication to make changes as indicated. His likely length of stay 2-4 days. Coding Level of Care Code Acute Code for [facility] Fwd Diagnoses Suicidal ideation R45.851 Depression F32.A Paranoia F22 Psychosis F29
[2024-03-08 06:00] VITALS: BP 135/90; PULSE 82; RESP 18; TEMP 36.4; O2SAT 96
[2024-03-08] MEDS: fluoxetine 10 mg Capsule PO (08:15)
[2024-03-08] MEDS: nicotine 2 mg Gum BUCCAL (12:39)
--- NOTE | 2024-03-08 12:59 | P.NPUPN_ITS ---
Subjective NPU 2 Subjective: Patient presented today reporting that he is feeling a little better. Continues to be a little antsy per staff reports and direct observation. However he was happy that he might have an opportunity with [employer] [facility] with an interview tomorrow morning. He is starting to get more focused on the possibility of discharge and we discussed how that might work after the interview. He denied any side effects to the medication. Mental Status Exam 2 MSE Comments: This is an obese white male in hospital scrubs with limited grooming and eye contact. No abnormal movements except for mild psychomotor agitation. Cooperative with exam in mild to moderate distress. Speech was mostly decreased rate and volume. Mood described as a little down, affect slightly odd and guarded. Thought process was linear and mostly organized. Thought content: Patient denied suicidal or homicidal ideation , there were no delusions reported but concerns for paranoid or persecutory delusions noted, he denied auditory and visual hallucinations. The patient exhibits signs of depression and paranoia. He denies any hallucinations or delusions. He reports feeling like people are out to get him Attention and concentration were intact and memory appeared mostly reliable but none were formally tested. He is alert and oriented x 3. Insight and judgment limited, impulse control is limited. Vitals/I&O/Wt Last Vital Signs Temp 97.5 F L 03/08/24 06:00 Pulse 82 03/08/24 06:00 Resp 18 03/08/24 06:00 BP 135/90 03/08/24 06:00 Pulse Ox 96 03/08/24 06:00 O2 Del Method Room Air 03/08/24 06:00 Data NPU 03/03/24 15:44 03/03/24 15:44 A&P Assessment and plan (1) Suicidal ideation: (2) Depression: (3) Paranoia: (4) Psychosis: Plan This is a 43-year-old white male who presented denying significant mental health history till recently possibly. The patient is struggling with significant mental health issues, including depression, anxiety, and paranoia. These issues appear to have been exacerbated by his recent release from intermediate and his difficulty adjusting to society. His sleep issues may be a symptom of his mental health issues or a separate issue that needs to be addressed. He is also homeless and some of his behavior may be consistent with malingering. 1. Started Invega 6 mg p.o. daily. Will move Invega to bedtime. Initiated propranolol 20 mg p.o. 3 times daily as needed for anxiety. 2. Continue every 15 minute checks for safety. 3. Encourage individual, group and milieu therapies. 4. Obtain collateral information on what his baseline actually is. 5. Encourage sober living treatment after discharge at the highest level of care to which he is willing to commit. Patient interested in working with social work team on Thursday to consider sober living treatment. Has a interview with [facility] in the morning. Initiated 21-day hold paperwork. Involuntary Hold Information 2 96 Hour Hold: 96 Hour Involuntary Admission: Yes 96 Hour Hold Ending Date: 03/09/24 96 Hour Hold Ending Time: 15:00 Attestations NPU 2 Medical Necessity Statement*: Inpatient hospitalization is medically necessary and the clinically appropriate intervention at this time. We will monitor medication to make changes as indicated. His likely length of stay 1-3 days. Coding Level of Care Code Acute Code for [facility] Fwd Diagnoses Suicidal ideation R45.851 Depression F32.A Paranoia F22 Psychosis F29
[2024-03-08 14:00] VITALS: BP 115/98; PULSE 103; RESP 16; TEMP 36.8; O2SAT 93
[2024-03-08 19:46] VITALS: BP 133/85; PULSE 74; RESP 16; TEMP 36.4; O2SAT 97
[2024-03-08] MEDS: paliperidone ER 6 mg Tablet PO (20:01)
[2024-03-08] MEDS: OLANZapine 10 mg TABLET 15 MG PO (20:01)
[2024-03-08] MEDS: ibuprofen 600 mg Tablet PO (20:11)
[2024-03-09 06:00] VITALS: BP 134/95; PULSE 77; RESP 16; TEMP 36.3; O2SAT 99
--- NOTE | 2024-03-09 07:31 | P.NPUPN_ITS ---
Subjective NPU 2 Subjective: Patient presented today reporting that he is doing fine. He did have his interview with Samanta Shoes. However he was talking mostly about going to live with his mother and that his mother wants him to come there. We agreed that we would give her a call and identify whether or not she is prepared to be his full solution for discharge. He was vet was pushing for discharge tomorrow. He denied any side effects to medication. We discussed the 21-day hold hearing tomorrow and whether or not that would still happen. Mental Status Exam 2 MSE Comments: This is an obese white male in hospital scrubs with limited grooming and eye contact. No abnormal movements except for mild psychomotor agitation. Cooperative with exam in mild to moderate distress. Speech was mostly decreased rate and volume. Mood described as a little down, affect slightly odd and guarded. Thought process was linear and mostly organized. Thought content: Patient denied suicidal or homicidal ideation , there were no delusions reported but concerns for paranoid or persecutory delusions noted, he denied auditory and visual hallucinations. The patient exhibits signs of depression and paranoia. He denies any hallucinations or delusions. He reports feeling like people are out to get him Attention and concentration were intact and memory appeared mostly reliable but none were formally tested. He is alert and oriented x 3. Insight and judgment limited, impulse control is limited. Vitals/I&O/Wt Last Vital Signs Temp 97.4 F L 03/09/24 06:00 Pulse 77 03/09/24 06:00 Resp 16 03/09/24 06:00 BP 134/95 03/09/24 06:00 Pulse Ox 99 03/09/24 06:00 O2 Del Method Room Air 03/09/24 06:00 Data NPU 03/03/24 15:44 03/03/24 15:44 A&P Assessment and plan (1) Suicidal ideation: (2) Depression: (3) Paranoia: (4) Psychosis: Plan This is a 43-year-old white male who presented denying significant mental health history till recently possibly. The patient is struggling with significant mental health issues, including depression, anxiety, and paranoia. These issues appear to have been exacerbated by his recent release from senior living and his difficulty adjusting to society. His sleep issues may be a symptom of his mental health issues or a separate issue that needs to be addressed. He is also homeless and some of his behavior may be consistent with malingering. 1. Started Invega 6 mg p.o. daily. Will move Invega to bedtime. Initiated propranolol 20 mg p.o. 3 times daily as needed for anxiety. 2. Continue every 15 minute checks for safety. 3. Encourage individual, group and milieu therapies. 4. Obtain collateral information on what his baseline actually is. 5. Encourage sober living treatment after discharge at the highest level of care to which he is willing to commit. Patient interested in working with social work team on Thursday to consider sober living treatment. Has a interview with neal melendez in the morning. Initiated 21-day hold paperwork. 21-day hold hearing tomorrow at 1315. Involuntary Hold Information 2 96 Hour Hold: 96 Hour Involuntary Admission: Yes 96 Hour Hold Ending Date: 03/09/24 96 Hour Hold Ending Time: 15:00 Attestations NPU 2 Medical Necessity Statement*: Inpatient hospitalization is medically necessary and the clinically appropriate intervention at this time. We will monitor medication to make changes as indicated. His likely length of stay 1-3 days. Coding Level of Care Code Acute Code for [facility] Fwd Diagnoses Suicidal ideation R45.851 Depression F32.A Paranoia F22 Psychosis F29
[2024-03-09] MEDS: fluoxetine 10 mg Capsule PO (08:16)
[2024-03-09] MEDS: nicotine 2 mg Gum BUCCAL ×2 (12:28→17:25)
[2024-03-09 14:00] VITALS: BP 119/81; PULSE 87; RESP 16; TEMP 36.6; O2SAT 97
[2024-03-09] MEDS: OLANZapine 10 mg TABLET 15 MG PO (20:15)
[2024-03-09] MEDS: paliperidone ER 6 mg Tablet PO (20:16)
[2024-03-09 20:25] VITALS: BP 98/54; PULSE 92; RESP 18; TEMP 36.4; O2SAT 97
[2024-03-10 06:00] VITALS: BP 124/85; PULSE 87; RESP 16; TEMP 36.4; O2SAT 90
--- NOTE | 2024-03-10 08:23 | PC.NURSE ---
PT CURRENTLY DENIES SI/HI/AH/VH. PT CURRENTLY DENIES ANXIETY. PT ENDORSES DEPRESSION STATING I'M JUST DEPRESSED THAT I AM HERE AGAIN. I WAS TRYING TO GET INTO OUT PATIENT REHAB AND THEY ASKED ABOUT SUICIDE IN MY FAMILY. IT REMINDED ME OF WHEN MY GRANDFATHER SHOT HIMSELF AND I LOST IT. I DON'T WANT TO LOOSE EVERYTHING BECAUSE IM HERE. PT DID NOT RATE HIS DEPRESSION. PT APPEARS PARANOID AND UNCOMFORTABLE AROUND THIS NURSE. THIS NURSE ASKED TO LISTEN TO PT HEART AND LUNGS. PT AGREED AND PT STILL FLINCHED AWAY THE STETHOSCOPE WENT TO TOUCH HIS CHEST. PT WAS COOPERATIVE WITH ASSESSMENT AND MEDICATIONS. PT CURRENT NEEDS ARE MET AT THIS TIME.
[2024-03-10] MEDS: fluoxetine 10 mg Capsule PO (09:14)
[2024-03-10] MEDS: nicotine 2 mg Gum BUCCAL ×2 (09:23→20:17)
[2024-03-10 14:00] VITALS: BP 124/84; PULSE 111; RESP 18; TEMP 36.7; O2SAT 96
--- NOTE | 2024-03-10 19:16 | P.NPUPN_ITS ---
Subjective NPU 2 Subjective: Patient presented today reporting that he is doing okay. 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 He endorsed feeling happy that we were not continuing the 21 hold filing. We discussed a plan to assist him in getting his medications and getting connected with services in his area. He denies any side effects of medication. Mental Status Exam 2 MSE Comments: This is an obese white male in hospital scrubs with limited grooming and eye contact. No abnormal movements except for mild psychomotor agitation. Cooperative with exam in mild distress. Speech was mostly decreased rate and volume. Mood described as feeling better and more optimistic about a plan, affect slightly odd and guarded. Thought process was linear and mostly organized. Thought content: Patient denied suicidal or homicidal ideation , there were no delusions reported but concerns for paranoid or persecutory delusions noted, he denied auditory and visual hallucinations. The patient exhibits signs of depression and paranoia. He denies any hallucinations or delusions. Attention and concentration were intact and memory appeared mostly reliable but none were formally tested. He is alert and oriented x 3. Insight and judgment limited, impulse control is limited. Vitals/I&O/Wt Last Vital Signs Temp 97.5 F L 03/10/24 19:40 Pulse 91 03/10/24 19:40 Resp 19 H 03/10/24 19:40 BP 123/79 03/10/24 19:40 Pulse Ox 95 03/10/24 19:40 O2 Del Method Room Air 03/10/24 06:00 Data NPU 03/03/24 15:44 03/03/24 15:44 A&P Assessment and plan (1) Suicidal ideation: (2) Depression: (3) Paranoia: (4) Psychosis: Plan This is a 43-year-old white male who presented denying significant mental health history till recently possibly. The patient is struggling with significant mental health issues, including depression, anxiety, and paranoia. These issues appear to have been exacerbated by his recent release from [facility] and his difficulty adjusting to society. His sleep issues may be a symptom of his mental health issues or a separate issue that needs to be addressed. He is also homeless and some of his behavior may be consistent with malingering. 1. Started Invega 6 mg p.o. daily. Will move Invega to bedtime. Initiated propranolol 20 mg p.o. 3 times daily as needed for anxiety. 2. Continue every 15 minute checks for safety. 3. Encourage individual, group and milieu therapies. 4. Obtain collateral information on what his baseline actually is. 5. Encourage sober living treatment after discharge at the highest level of care to which he is willing to commit. Patient interested in working with social work team on Thursday to consider sober living treatment. Has a interview with neal melendez in the morning. Initiated 21-day hold paperwork. 21-day hold hearing canceled. Discussion with mother has led to him having a place to stay and she reports she would be supportive of him taking his medication and keeping appointments. 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 Involuntary Hold Information 2 96 Hour Hold: 96 Hour Involuntary Admission: Yes 96 Hour Hold Ending Date: 03/09/24 96 Hour Hold Ending Time: 15:00 Attestations NPU 2 Medical Necessity Statement*: Inpatient hospitalization is medically necessary and the clinically appropriate intervention at this time. We will monitor medication to make changes as indicated. His likely length of stay 1-2 days. Coding Level of Care Code Acute Code for [facility] Fwd Diagnoses Suicidal ideation R45.851 Depression F32.A Paranoia F22 Psychosis F29
[2024-03-10 19:40] VITALS: BP 123/79; PULSE 91; RESP 19; TEMP 36.4; O2SAT 95
[2024-03-10] MEDS: ibuprofen 600 mg Tablet PO (20:14)
[2024-03-10] MEDS: paliperidone ER 6 mg Tablet PO (20:14)
[2024-03-10] MEDS: OLANZapine 10 mg TABLET 15 MG PO (20:14)
[2024-03-11 06:00] VITALS: BP 122/73; PULSE 87; RESP 18; TEMP 36.4; O2SAT 96
[2024-03-11] MEDS: nicotine 2 mg Gum BUCCAL (07:51)
[2024-03-11] MEDS: fluoxetine 10 mg Capsule PO (07:51)
--- NOTE | 2024-03-11 12:43 | W.PM.NPUDCS ---
Diagnoses at Discharge Discharge Diagnosis (1) Suicidal ideation: Status: Acute (2) Depression: Status: Inactive (3) Paranoia: Status: Acute (4) Psychosis: Status: Acute Reason for Visit Reason for Visit: SI Involuntary Hold Information 96 Hour Hold: 96 Hour Involuntary Admission: Yes 96 Hour Hold Ending Date: 03/09/24 96 Hour Hold Ending Time: 15:00 Mental Status Exam MSE Comments: This is an obese white male in hospital scrubs with limited grooming and eye contact. No abnormal movements except for mild psychomotor agitation. Cooperative with exam in mild distress. Speech was mostly decreased rate and volume. Mood described as feeling better and more optimistic about a plan, affect slightly odd and guarded. Thought process was linear and mostly organized. Thought content: Patient denied suicidal or homicidal ideation , there were no delusions reported but concerns for paranoid or persecutory delusions noted, he denied auditory and visual hallucinations. The patient exhibits signs of depression and paranoia. He denies any hallucinations or delusions. Attention and concentration were intact and memory appeared mostly reliable but none were formally tested. He is alert and oriented x 3. Insight and judgment limited, impulse control is limited. Discharge Data Studies Completed and Pending: Laboratory Results WBC 8.26 10^3/uL (3.2 9-11.43) 03/03/24 15:44 RBC 5.33 10^6/uL (3.8 5-5.65) 03/03/24 15:44 Hgb 15.90 g/dL (11.27 -16.99) 03/03/24 15:44 Hct 48.2 % (37-53) 03/03/24 15:44 MCV 90.4 fl (82-101) 03/03/24 15:44 MCH 29.8 pg (27-33) 03/03/24 15:44 MCHC 33.0 g/dL (30-55) 03/03/24 15:44 RDW 12.8 % (12.1-15.1 ) 03/03/24 15:44 Plt Count 258 10^3/cmm (157 -399) 03/03/24 15:44 MPV 11.9 fL (7.4-10.4 ) H 03/03/24 15:44 Neut % (Auto) 57.7 % 03/03/24 15:44 Lymph % (Auto) 27.2 % 03/03/24 15:44 [place] % (Auto) 11.7 % 03/03/24 15:44 Eos % (Auto) 2.3 % 03/03/24 15:44 Baso % (Auto) 0.6 % 03/03/24 15:44 Neut # (Auto) 4.76 10^3/uL (1.8 -7.7) 03/03/24 15:44 Lymph # (Auto) 2.3 10^3/uL (0.8- 4.8) 03/03/24 15:44 [place] # (Auto) 1.0 10^3/uL (0.2- 0.9) H 03/03/24 15:44 Eos # (Auto) 0.2 10^3/uL (0.0- 0.8) 03/03/24 15:44 Baso # (Auto) 0.1 10^3/uL (0.0- 0.1) 03/03/24 15:44 Nucleated RBC % (a uto) 0 % 03/03/24 15:44 Nucleated RBCs # 0.0 /100WBC 03/03/24 15:44 Sodium 142 mmol/L (136-1 45) 03/03/24 15:44 Potassium 4.4 mmol/L (3.5-5 .1) 03/03/24 15:44 Chloride 107 mmol/L (98-10 7) 03/03/24 15:44 Carbon Dioxide 23 mmol/L (22-29) 03/03/24 15:44 Anion Gap 16.4 (5-19) 03/03/24 15:44 BUN 16 mg/dL (6-20) 03/03/24 15:44 Creatinine 0.5 mg/dL (0.7-1. 2) L 03/03/24 15:44 GFR Calculation 183.2 mL/min (90- 130) H 03/03/24 15:44 Glucose 108 mg/dL (65-115 ) 03/03/24 15:44 Calculated Osmolal ity 296 mOsm/kg (285- 295) H 03/03/24 15:44 Calcium 9.1 mg/dL (8.5-10 .5) 03/03/24 15:44 Total Bilirubin 0.4 mg/dL (0.15-1 .2) 03/03/24 15:44 AST 18 U/L (0-40) 03/03/24 15:44 ALT 13 U/L (0-41) 03/03/24 15:44 Alkaline Phosphata se 93 U/L (40-130) 03/03/24 15:44 Total Protein 7.5 g/dL (6.6-8.7 ) 03/03/24 15:44 Albumin 4.5 g/dL (3.5-5.2 ) 03/03/24 15:44 Globulin 3.0 g/dL (1.3-4.6 ) 03/03/24 15:44 Salicylates < 0.3 mg/dL (3-10 ) L 03/03/24 15:44 Urine Opiates Scre en Negative ng/mL (N egative) 03/03/24 14:55 Acetaminophen < 5.0 ug/mL (10-3 0) L 03/03/24 15:44 Ur Barbiturates Sc reen Negative ng/mL (N egative) 03/03/24 14:55 Ur Phencyclidine S crn Negative ng/mL (N egative) 03/03/24 14:55 Ur Amphetamines Sc reen Negative ng/mL (N egative) 03/03/24 14:55 U Benzodiazepines Scrn Negative ng/mL (N egative) 03/03/24 14:55 Urine Cocaine Scre en Negative ng/mL (N egative) 03/03/24 14:55 U Marijuana (THC) Screen Negative ng/mL (N egative) 03/03/24 14:55 Ethyl Alcohol < 10 mg/dL (0-10) 03/03/24 15:44 Vitals: Last Vital Signs Temp 97.6 F 03/11/24 06:00 Pulse 87 03/11/24 06:00 Resp 18 03/11/24 06:00 BP 122/73 03/11/24 06:00 Pulse Ox 96 03/11/24 06:00 O2 Del Method Room Air 03/10/24 06:00 Discharge Plan Discharge Patient Disposition: Home Condition: Stable Prescriptions: New propranolol 20 mg Tablet 20 mg PO TID PRN (Reason: Mild Anxiety) 30 Days Qty: 90 1RF fluoxetine 10 mg Capsule 10 mg PO DAILY 3 Days Qty: 30 1RF paliperidone 6 mg Tablet Extended Release 24 Hr 6 mg PO BEDTIME 30 Days Qty: 30 1RF olanzapine 15 mg tablet 15 mg PO BEDTIME 30 Days Qty: 30 1RF Discharge Orders: Discharge Order (Routine); Ordered 03/11/24 Ordered By: Philip Escalona Referrals: [facility] [Other] - 4-7 days (Walk in for services anytime Thursday thru Thursday 8am to 4pm.) [facility] [Other] - 03/15/24 2:20 pm (Hospital follow up with EVIN Guido) Discharge Diet: Regular Discharge Activity: Resume usual activity Patient Instructions: Opioid Safety Discharge Attestations NPU Time Spent in Discharge Care*: less than 30 min Specific Discharge Activities: Specific discharge activities: educating patient, discussing with ed case manager/social workers/dc planners, documenting/other paperwork and evaluating patient/reviewing data Coding Level of Care Code Acute Code for Chg Fwd Diagnoses Suicidal ideation R45.851 Depression F32.A Paranoia F22 Psychosis F29
[2024-03-11 14:00] VITALS: BP 130/78; PULSE 92; RESP 16; TEMP 36.4; O2SAT 95
[2024-03-11 14:14] VITALS: BP 122/73; PULSE 87; RESP 18; TEMP 36.4; O2SAT 96
== END 2024-03-11 14:23 | disposition home or self-care (01) | DRG 885 ==
LOC: ER 15:09 → NP 15:52
PROVIDERS: Admitting Provider Psychiatry & Neurology Psychiatry; Emergency Provider Emergency Medicine; Visit Provider Psychiatry & Neurology Psychiatry
DX: F29 Unspecified psychosis not due to a substance or known physiological condition (principal); R45.851 Suicidal ideations; F32.A Depression, unspecified; F22 Delusional disorders; E66.9 Obesity, unspecified; Z68.32 Body mass index [BMI] 32.0-32.9, adult; Z87.891 Personal history of nicotine dependence
CPT/HCPCS: 36415; 80053; 80306; 80307; 85025; 97165; 99285

== ENCOUNTER 2024-03-20 12:28 | Inpatient (IN) | payer BC, MEDICAID, SELFPAY ==
[2024-03-20 12:44] VITALS: BP 122/84; PULSE 88; RESP 18; TEMP 36.7; O2SAT 95
--- NOTE | 2024-03-20 12:49 | ED.C_ITS ---
HPI - Psych 2 General: Chief Complaint: Psychiatric Symptoms Stated Complaint: SI Time Seen by Provider: 03/20/24 12:45 History of Present Illness: 43-year-old man with history of anxiety and depression who presents emergency room with suicidal thoughts. He says he has been very anxious and having night terrors. He says he has been out of [facility] for about a month now. He had been in for over 6 years. He says he needs a prescription for Klonopin. He has no specific plan. Related Data Previous Rx's Medication Instructions Recorded fluoxetine 10 mg capsule 10 mg PO DAILY 3 days #30 caps 03/11/24 olanzapine 15 mg tablet 15 mg PO BEDTIME 30 days #30 tabs 03/11/24 paliperidone 6 mg tablet,extended 6 mg PO BEDTIME 30 days #30 tabs 03/11/24 release 24 hr propranolol 20 mg tablet 20 mg PO TID PRN Mild Anxiety 30 03/11/24 days #90 tabs Allergies Allergy/AdvReac Type Severity Reaction Status Date / Time No Known Allergies Allergy Verified 03/03/24 14:36 Review of Systems 2 Narrative: Constitutional symptoms: Negative except as documented in HPI. Skin symptoms: Negative except as documented in HPI. Eye symptoms: Negative except as documented in HPI. ENMT symptoms: Negative except as documented in HPI. Respiratory symptoms: Negative except as documented in HPI. Cardiovascular symptoms: Negative except as documented in HPI. Gastrointestinal symptoms: Negative except as documented in HPI. Genitourinary symptoms: Negative except as documented in HPI. Musculoskeletal symptoms: Negative except as documented in HPI. Neurologic symptoms: Negative except as documented in HPI. Psychiatric symptoms: Negative except as documented in HPI. Endocrine symptoms: Negative except as documented in HPI. Physical Exam 2 Narrative: EXAM NARRATIVE: General: Alert. no acute distress Skin: Warm, dry Head: Normocephalic, atraumatic. Neck: Supple, trachea midline. Eye: Extraocular movements are intact. Ears, nose, mouth and throat: Oral mucosa moist. Cardiovascular: Regular rate and rhythm, Normal peripheral perfusion. Respiratory: Lungs are clear to auscultation, respirations are non-labored, breath sounds are equal, Symmetrical chest wall expansion. Gastrointestinal: Soft, Nontender, Non distended, Normal bowel sounds. Musculoskeletal: Normal ROM, no deformity. Neurological: Alert and oriented to person, place, time, and situation, No focal neurological deficit observed. Psychiatric: Cooperative, depressed, expresses suicidal ideation. Course 2 Vital Signs: Vital signs: Vital Signs Temperature 98.1 F 03/20/24 12:44 Pulse Rate 88 03/20/24 12:44 Respiratory Rate 18 03/20/24 12:44 Blood Pressure 122/84 03/20/24 12:44 Pulse Oximetry 95 03/20/24 12:44 Oxygen Delivery Me thod Room Air 03/20/24 12:44 MDM - Psych Medical Decision Making Differential diagnosis: Patient with reported depression and suicidal ideation. concerns for infection, alcohol intoxication, cardiac issues or other medical problems prior to psychiatric admission. Workup: labwork, ekg ordered to evaluate the pathologies and to clear the patient medically prior to psychiatric admission Lab Review: Laboratory results were reviewed and interpreted by myself the emergency room physician. Lab review: - Medically cleared. - EKG shows no ischemic changes. - Blood alcohol level is negative, -Tylenol and salicylate levels are negative. - Drug screen is negative - No signs of infection, urinalysis clear and white count is not elevated - No anemia. - BUN and creatinine are within normal limits. Consultation: I spoke with Dr. Navarro who is on-call for psychiatry. He agrees to admission. Assessment and plan: Depression Suicidal ideation Anxiety ? 96-hour hold was placed. -Admission to neuropsychiatric unit for continued evaluation and treatment. - All lab work was reviewed and interpreted personally by myself, the ER physician - Evaluation and treatment of this problem were appropriate in the emergency setting Lab Data 03/20/24 13:31 03/20/24 13:31 Laboratory Results WBC 6.68 10^3/uL (3.29-11.43) 03/20/24 13:31 RBC 4.51 10^6/uL (3.85-5.65) 03/20/24 13:31 Hgb 13.50 g/dL (11.27-16.99) 03/20/24 13:31 Hct 41.2 % (37-53) 03/20/24 13:31 MCV 91.4 fl (82-101) 03/20/24 13:31 MCH 29.9 pg (27-33) 03/20/24 13:31 MCHC 32.8 g/dL (30-55) 03/20/24 13:31 RDW 13.3 % (12.1-15.1) 03/20/24 13:31 Plt Count 221 10^3/cmm (157-399) 03/20/24 13:31 MPV 11.0 fL (7.4-10.4) H 03/20/24 13:31 Neut % (Auto) 55.4 % 03/20/24 13:31 Lymph % (Auto) 31.3 % 03/20/24 13:31 [place] % (Auto) 8.7 % 03/20/24 13:31 Eos % (Auto) 3.6 % 03/20/24 13:31 Baso % (Auto) 0.6 % 03/20/24 13:31 Neut # (Auto) 3.70 10^3/uL (1.8-7.7) 03/20/24 13:31 Lymph # (Auto) 2.1 10^3/uL (0.8-4.8) 03/20/24 13:31 [place] # (Auto) 0.6 10^3/uL (0.2-0.9) 03/20/24 13:31 Eos # (Auto) 0.2 10^3/uL (0.0-0.8) 03/20/24 13:31 Baso # (Auto) 0.0 10^3/uL (0.0-0.1) 03/20/24 13:31 Nucleated RBC % (auto) 0 % 03/20/24 13:31 Nucleated RBCs # 0.0 /100WBC 03/20/24 13:31 Sodium 139 mmol/L (136-145) 03/20/24 13:31 Potassium 3.8 mmol/L (3.5-5.1) 03/20/24 13:31 Chloride 104 mmol/L (98-107) 03/20/24 13:31 Carbon Dioxide 25 mmol/L (22-29) 03/20/24 13:31 Anion Gap 13.8 (5-19) 03/20/24 13:31 BUN 15 mg/dL (6-20) 03/20/24 13:31 Creatinine 0.6 mg/dL (0.7-1.2) L 03/20/24 13:31 GFR Calculation 148.5 mL/min (90-130) H 03/20/24 13:31 Glucose 112 mg/dL (65-115) 03/20/24 13:31 Calculated Osmolality 290 mOsm/kg (285-295) 03/20/24 13:31 Calcium 8.6 mg/dL (8.5-10.5) 03/20/24 13:31 Total Bilirubin 0.3 mg/dL (0.15-1.2) 03/20/24 13:31 AST 21 U/L (0-40) 03/20/24 13:31 ALT 14 U/L (0-41) 03/20/24 13:31 Alkaline Phosphatase 78 U/L (40-130) 03/20/24 13:31 Total Protein 6.3 g/dL (6.6-8.7) L 03/20/24 13:31 Albumin 3.9 g/dL (3.5-5.2) 03/20/24 13:31 Globulin 2.4 g/dL (1.3-4.6) 03/20/24 13:31 TSH 0.92 uIU/mL (0.27-4.20) 03/20/24 13:31 Urine Color Yellow (Yellow) 03/20/24 12:50 Urine Appearance Clear (CLEAR) 03/20/24 12:50 Urine pH 6.0 (5-7) 03/20/24 12:50 Ur Specific [place] 1.031 (1.005-1.030) H 03/20/24 12:50 Urine Protein Negative (Negative) 03/20/24 12:50 Urine Glucose (UA) Negative (Normal) 03/20/24 12:50 Urine Ketones Trace (Negative) 03/20/24 12:50 Urine Blood Negative (Negative) 03/20/24 12:50 Urine Nitrate Negative (Negative) 03/20/24 12:50 Urine Bilirubin Negative (Negative) 03/20/24 12:50 Urine Urobilinogen 1.0 mg/dL (Negative) 03/20/24 12:50 Ur Leukocyte Esterase Negative (Negative) 03/20/24 12:50 Urine RBC 0-2 /hpf (0-2) 03/20/24 12:50 Urine WBC 0-5 /hpf (0-5) 03/20/24 12:50 Ur Squamous Epith Cells 0-5 /hpf (0-5) 03/20/24 12:50 Amorphous Sediment Not Reportable 03/20/24 12:50 Urine Bacteria None seen /hpf (NONE) 03/20/24 12:50 Hyaline Casts 4.11 /lpf 03/20/24 12:50 Salicylates < 0.3 mg/dL (3-10) L 03/20/24 13:31 Urine Opiates Screen Negative ng/mL (Negative) 03/20/24 12:50 Acetaminophen < 5.0 ug/mL (10-30) L 03/20/24 13:31 Ur Barbiturates Screen Negative ng/mL (Negative) 03/20/24 12:50 Ur Phencyclidine Scrn Negative ng/mL (Negative) 03/20/24 12:50 Ur Amphetamines Screen Negative ng/mL (Negative) 03/20/24 12:50 U Benzodiazepines Scrn Negative ng/mL (Negative) 03/20/24 12:50 Urine Cocaine Screen Negative ng/mL (Negative) 03/20/24 12:50 U Marijuana (THC) Screen Negative ng/mL (Negative) 03/20/24 12:50 Ethyl Alcohol < 10 mg/dL (0-10) 03/20/24 13:31 No radiology studies performed this visit Discharge Plan Discharge Patient Disposition: Admitted As Inpatient Admit Provider: Pedro Navarro Clinical Impression: Suicidal ideation, Depression, Anxiety Condition: Stable Coding Level of Care Code ED Executive Sales Manager for Ami Gunter
--- NOTE | 2024-03-20 13:23 | ECG_ITS ---
[facility] Test Date: 2024-03-20 Pat Name: Herman Edmond Department: Room: Gender: Male Precision Assembly Inspector: : 1980 Requested By: Nyla Byers Order Number: [id number] Adriana MD: Job German M.D. Measurements Intervals [place] Rate: 93 P: 21 AR: 132 QRS: 40 QRSD: 97 T: 60 QT: 353 QTc: 440 Interpretive Statements SINUS RHYTHM Compared to ECG 02/27/2024 06:12:28 Sinus arrhythmia no longer present Myocardial infarct finding no longer present Electronically Signed On 03-20-2024 19:23:23 CDT by Job German M.D. [email or web address]
[2024-03-20 13:25] LABS: Bilirubin Urine Negative (Negative); Blood Urine Negative (Negative); Glucose Urine UA Negative (Normal); Ketones Urine Trace (Negative); Leukocyte Esterase Urine Negative (Negative); Nitrate Urine Negative (Negative); Protein Urine Negative (Negative); Urine Appearance Clear (CLEAR); Urine Color Yellow (Yellow)
[2024-03-20 13:29] LABS: Specific Gravity, Urine 1.031 (1.005-1.030)
[2024-03-20 13:30] LABS: Bacteria Urine None Seen /hpf; Hyaline Casts Urine 4.11 /lpf; RBC Urine 0-2 /hpf (0-2); Squamous Epithelial Cell Urine 0-5 /hpf (0-5); WBC Urine 0-5 /hpf (0-5)
[2024-03-20 13:32] LABS: Amphetamines Screen Urine Negative (Negative); Barbiturates Screen Urine Negative (Negative); Benzodiazepines Screen Urine Negative (Negative); Cocaine Screen Urine Negative (Negative); Opiate Screen Urine Negative (Negative); PCP Screen Urine Negative (Negative); THC Screen Urine Negative (Negative)
[2024-03-20 13:35] LABS: Basophils % 0.6 %; Eosinophils # 0.2 10^3/uL (0.0-0.8); Eosinophils % 3.6 %; Hematocrit 41.2 % (37-53); Lymphocytes # 2.1 10^3/uL (0.8-4.8); Lymphocytes % 31.3 %; Mean Corpuscular HGB Conc 32.8 g/dL (30-55); Mean Corpuscular Hemoglobin 29.9 pg (27-33); Mean Corpuscular Volume 91.4 fl (82-101); Monocytes # 0.6 10^3/uL (0.2-0.9); Monocytes % 8.7 %; Neutrophils % 55.4 %; Nucleated Red Blood Cells % 0 %; Platelet Count 221 10^3/cmm (157-399); Red Blood Count 4.51 10^6/uL (3.85-5.65); Red Cell Distribution Width 13.3 % (12.1-15.1); White Blood Count 6.68 10^3/uL (3.29-11.43)
--- NOTE | 2024-03-20 13:53 | PC.NURSE ---
96 hr rights reviewed with patient @0528 with assistance of [facility] safety and security officer Tye Khoury All education reviewed. No verbalized questions or concerns at this time. Patient copy left @bedside with patient. Pt provided with a snack and drink.
[2024-03-20 14:03] LABS: Alanine Aminotransferase 14 U/L (0-41); Albumin Level 3.9 g/dL (3.5-5.2); Alkaline Phosphatase 78 U/L (40-130); Anion Gap 13.8 (5-19); Aspartate Amino Transferase 21 U/L (0-40); Blood Urea Nitrogen 15 mg/dL (6-20); Calcium 8.6 mg/dL (8.5-10.5); Carbon Dioxide 25 mmol/L (22-29); Chloride 104 mmol/L (98-107); Globulin 2.4 g/dL (1.3-4.6); Glomerular Filtration Rate 148.5 mL/min (90-130); Glucose 112 mg/dL (65-115); Osmolality Calculated 290 mOsm/kg (285-295); Potassium 3.8 mmol/L (3.5-5.1); Sodium 139 mmol/L (136-145); Thyroid Stimulating Hormone 0.92 uIU/mL (0.27-4.20); Total Bilirubin 0.3 mg/dL (0.15-1.2); Total Protein 6.3 g/dL (6.6-8.7)
[2024-03-20 14:06] LABS: Acetaminophen < 5.0 ug/mL (10-30); Alcohol Level < 10 mg/dL (0-10); Salicylate < 0.3 mg/dL (3-10)
[2024-03-20 14:42] VITALS: BP 122/84; PULSE 88; O2SAT 95
[2024-03-20 14:52] VITALS: BP 129/85; PULSE 92; RESP 16; TEMP 36.6; O2SAT 96
--- NOTE | 2024-03-20 15:20 | PC.NURSE ---
Patient arrived to the unit seemingly anxious with a haircut that appears to be possibly done by the patient himself. Patient states today he had thought about shooting himself with his brother's gun because he owes a gambling debt to someone. He also mentioned his son having a wedding, but did not explain what this had to do with him wanting to harm himself. Patient said the wedding was very beautiful . He states he currently lives with his mother. Patient was admitted to the [facility] psych unit within this last month and also says he was in a psych unit in [place], [place] and [place] in [place], all within this last month as well. He denies any recent drug or alcohol usage.
[2024-03-20] MEDS: nicotine 21 mg Patch 1 PATCH TRANSDERMA (15:26)
[2024-03-20] MEDS: paliperidone ER 6 mg Tablet PO (20:16)
[2024-03-20] MEDS: OLANZapine 5 mg TABLET 15 MG PO (20:16)
[2024-03-20 20:44] VITALS: BP 113/66; PULSE 88; RESP 18; TEMP 36.7; O2SAT 95
[2024-03-21 06:00] VITALS: BP 128/93; PULSE 79; RESP 18; TEMP 36.5; O2SAT 96
[2024-03-21] MEDS: fluoxetine 10 mg Capsule PO (08:19)
[2024-03-21] MEDS: nicotine 2 mg Gum BUCCAL (10:11)
[2024-03-21] MEDS: docusate sodium 100 mg Capsule PO (10:11)
[2024-03-21 14:00] VITALS: BP 124/82; PULSE 88; RESP 16; TEMP 36.4; O2SAT 97
--- NOTE | 2024-03-21 18:04 | W.PM.NPUH&PS ---
Providers/Chief Complaint Admitting Physician: Pedro Navarro MD Chief Complaint: SI HPI NPU History of Present Illness Herman Edmond Sr is a 43 year old male recently discharged from the neuropsychiatric unit on 03/11/2024 who presented to the emergency department complaining of suicidal ideation over the past 2 weeks. He had reported compliance with his previous treatment here 10 days ago and reports that he has been struggling with night terrors and reported that he was tired of living in a camper with his mother. He states that he had had repeated thoughts of getting a gun and shooting himself with it. He reports continued depression but denied any problems with paranoia. He had minimized any recent changes in his life since his discharge 10 days ago. He had reported having been traumatized in senior care and endorsed having experienced nightmares. He had denied any current hallucinations. He had requested having a prescription for Klonopin to help him but was nonspecific regarding how it may help him. The patient's urine drug screen was negative for alcohol and any other illicit substances. He had reported sobriety since his recent hospitalization. No substantiative changes were reported since his last hospitalization. Current medications: Paliperidone 6 mg daily, olanzapine 15 mg at night, Prozac 10 mg daily, propranolol 20 mg 3 times a day Excerpt from Previous NPU discharge summary on 03/11/24 History of Present Illness Herman Edmond Sr is a 43 year old male who presented to the emergency department with the following report: Chief Complaint: Psychiatric Symptoms Stated Complaint: SI Time Seen by Provider: 03/03/24 14:51 Mode of arrival: ambulatory Limitations: no limitations History of Present Illness: 43-year-old male 43-year-old male who states that has been having suicidal ideations over the last 2 weeks he states that he has a plan of cutting his wrist with a knife. He was recently admitted to [facility] he denies any worsening proving factors. Patient is currently on Prozac Associated symptoms: Reports depression and suicidal ideation. He was admitted to the neuropsychiatric unit for definitive treatment of those issues. He presents today unknown to the inpatient or outpatient services from any recent encounters. No known inpatient services here. He presents today reporting: Chief complaint The patient is struggling with feelings of paranoia and depression, and is having difficulty adjusting to society after being released from senior care. He is also experiencing sleep issues. History of the present complaint The patient, a 43-year-old male, presented with a history of depression and anxiety, which he reported began after his release from senior care. He has been struggling with adjusting to society after being incarcerated for 6.5 years. He has been hospitalized three times in the past three weeks due to suicidal ideation. The patient reported feeling paranoid and expressed a belief that everyone is out to get him. However, he denied experiencing hallucinations or hearing voices. He also mentioned experiencing nightmares related to his time in senior care. In terms of medication, the patient reported currently taking Prozac and Vistaril. He also mentioned previous use of a medication he referred to as Closet becker, which the doctor identified as possibly being clozapine or clonazepam. He also mentioned previous use of benzodiazepines. He expressed a desire for a recommendation for a good sleeping medication, as he has been struggling with sleep. The patient reported a history of substance use, including tobacco and alcohol. He mentioned having been in rehab once and having had a few DUIs. However, he reported that he has been abstaining from alcohol for several years now. The patient also mentioned a significant event in his life, the loss of a pair of expensive earbuds, which seemed to have a significant emotional impact on him. He did not elaborate on why this event was so impactful, but he brought it up multiple times during the consultation. In terms of his personal life, the patient reported having been once and having two adult sons. He mentioned that he had been in contact with his sons recently. He also mentioned experiencing significant changes in his life since his release from senior care, including the of his grandmother. The patient reported having no known allergies to medication. He expressed a desire for a recommendation for a good sleeping medication, as he has been struggling with sleep. He also expressed a desire for a recommendation for a medication to help with his feelings of paranoia. The doctor suggested starting him on Ambega and continuing with his current medications, Prozac and Vistaril. The doctor also suggested giving him Trazodone for his sleep issues. Mental health history The patient has a history of depression and anxiety, which began after his release from senior care. He has been hospitalized three times in the past three weeks due to suicidal ideation. He has been on Prozac and Vistaril, and has previously taken benzodiazepines for anxiety. He has also been on a mood stabilizer, possibly Clozapine. He has a history of outpatient treatment with a counselor or therapist. Social history The patient has a history of tobacco use and has previously struggled with alcohol consumption. He has been in rehab once and has had several DUIs. He has been incarcerated multiple times, with the longest sentence being 6.5 years. He has been homeless since his release from senior care. He has held a job for four years in the past, working at a [email or web address]. He has two biological children with whom he maintains a relationship. Meds NPU Home Medications Medication Instructions Recorded Confirmed Last Taken Type olanzapine 15 mg tablet 15 mg PO BEDTIME 30 days #30 tabs 03/11/24 03/20/24 Unknown Rx fluoxetine 10 mg capsule 10 mg PO DAILY 03/20/24 03/20/24 Unknown History paliperidone 6 mg tablet,extended 6 mg PO BEDTIME 03/20/24 03/20/24 Unknown History release 24 hr propranolol 20 mg tablet 20 mg PO TID PRN mild anxiety 03/20/24 03/20/24 Unknown History Allergies Allergy/AdvReac Type Severity Reaction Status Date / Time No Known Allergies Allergy Verified 03/03/24 14:36 Mental Status Exam MSE Comments: This is an obese white male in hospital scrubs with limited grooming and eye contact. No abnormal movements except for mild psychomotor retardation. Cooperative with exam in mild to moderate distress. Speech was mostly decreased in rate and diminished in volume. Mood described as depressed. His affect was restricted in range and flat. Thought process was linear and mostly organized. Thought content: Patient endorsed suicidal ideation and denied homicidal ideation. There was a poverty of content. There was no evidence of delusional thinking but he appeared guarded. He denied auditory and visual hallucinations. He denies any hallucinations or delusions. Attention and concentration were intact and memory appeared mostly reliable but none were formally tested. He is alert and oriented x 3. Insight and judgment limited, impulse control is limited. Vitals/I&O/Wt Last Vital Signs Temp 97.6 F 03/21/24 14:00 Pulse 88 03/21/24 14:00 Resp 16 03/21/24 14:00 BP 124/82 03/21/24 14:00 Pulse Ox 97 03/21/24 14:00 O2 Del Method Room Air 03/21/24 14:00 Weight last 48 hrs Weight 99.79 kg Data NPU 03/20/24 13:31 03/20/24 13:31 A&P Assessment and plan (1) Suicidal ideation: (2) Depression: (3) Paranoia: (4) Psychosis: Plan This is a 43-year-old white male who presented denying significant mental health history till recently possibly. The patient is struggling with significant mental health issues, including depression, anxiety, and paranoia. Patient recently discharged less than 2 weeks ago and remains guarded regarding issues leading to worsening depression, suicality and readmission here. 1. Restart prozac 10mg, olanzapine 15mg at night, and invega 6mg daily 2. Continue every 15 minute checks for safety. 3. Encourage individual, group and milieu therapies. 4. Obtain collateral information. 5. Encourage sober living treatment after discharge at the highest level of care to which he is willing to commit. Involuntary Hold Information 96 Hour Hold: 96 Hour Involuntary Admission: Yes 96 Hour Hold Ending Date: 03/25/24 96 Hour Hold Ending Time: 00:01 Attestations NPU Medical Necessity Statement*: Inpatient hospitalization is medically necessary and the clinically appropriate intervention at this time. We will monitor medication to make changes as indicated. Patient will be in the hospital for over two midnights. His likely length of stay 3-5 days. Coding Level of Care Code Acute Code for [facility] Fwd Diagnoses Suicidal ideation R45.851 Depression F32.A Paranoia F22 Psychosis F29
[2024-03-21 19:43] VITALS: BP 117/82; PULSE 82; RESP 18; TEMP 36.6; O2SAT 96
[2024-03-21] MEDS: propranolol 20 mg Tablet PO (20:08)
[2024-03-21] MEDS: paliperidone ER 6 mg Tablet PO (20:08)
[2024-03-21] MEDS: OLANZapine 5 mg TABLET 15 MG PO (20:09)
[2024-03-22 06:00] VITALS: BP 119/86; PULSE 84; RESP 16; TEMP 36.4; O2SAT 96
[2024-03-22] MEDS: fluoxetine 10 mg Capsule PO (09:49)
[2024-03-22] MEDS: nicotine 2 mg Gum BUCCAL (09:49)
[2024-03-22] MEDS: propranolol 20 mg Tablet PO ×3 (09:49→19:40)
[2024-03-22 14:00] VITALS: BP 117/76; PULSE 82; RESP 16; TEMP 36.4; O2SAT 96
--- NOTE | 2024-03-22 17:01 | P.NPUPN_ITS ---
Subjective NPU 2 Subjective: 43-year-old male admitted with suicidal ideation with reports of compliance with his medications most recently discharged 10 days ago. He had reported that he had desire to consider going back to a nursing home and lieu of his return to his trailer on his family's property. He had reported sobriety off of illicit drugs. He had reported no paranoia with the medications prescribed to him. He had reported that he had been feeling more depressed but was unable to elaborate as to what the stressors had been in his home environment that had led to him returning here. He reported having night terrors that had been stressful but also reported having these problems many months ago after returning from a 6- year brief stay in longterm. He had been struggling to engage with others here on the milieu and appeared at times to isolate himself. He had reported some desire to work but at the same time had endorsed having struggles with motivation. Mental Status Exam 2 MSE Comments: This is an obese white male in hospital scrubs with limited grooming and eye contact. No abnormal movements except for moderate psychomotor retardation. He was cooperative with exam in mild to moderate distress. Speech was mostly decreased in rate and diminished in volume with simple one word answers on interview. Mood described as depressed. His affect was restricted in range and flat. Thought process was linear and mostly organized. Thought content: Patient endorsed suicidal ideation and denied homicidal ideation. There was a poverty of content. There was no evidence of delusional thinking but he appeared guarded. He denied auditory and visual hallucinations. He denies any hallucinations or delusions. Attention and concentration were intact and memory appeared mostly reliable but none were formally tested. He is alert and oriented x 3. Insight and judgment limited, impulse control is limited. Vitals/I&O/Wt Last Vital Signs Temp 97.6 F 03/22/24 14:00 Pulse 82 03/22/24 14:00 Resp 16 03/22/24 14:00 BP 117/76 03/22/24 14:00 Pulse Ox 96 03/22/24 14:00 O2 Del Method Room Air 03/22/24 06:00 Data NPU 03/20/24 13:31 03/20/24 13:31 A&P Assessment and plan (1) Suicidal ideation: (2) Depression: (3) Paranoia: (4) Psychosis: Plan This is a 43-year-old white male who presented denying significant mental health history till recently possibly. The patient is struggling with significant mental health issues, including depression, anxiety, and paranoia. Patient recently discharged less than 2 weeks ago and remains guarded regarding issues leading to worsening depression, suicidality and readmission here. 1. Increase Prozac to 20mg to target depression, olanzapine 15mg at night, and decrease invega 3mg daily 2. Continue every 15 minute checks for safety. 3. Encourage individual, group and milieu therapies. 4. Obtain collateral information. 5. Encourage sober living treatment after discharge at the highest level of care to which he is willing to commit. Involuntary Hold Information 2 96 Hour Hold: 96 Hour Involuntary Admission: Yes 96 Hour Hold Ending Date: 03/25/24 96 Hour Hold Ending Time: 00:01 Attestations NPU 2 Medical Necessity Statement*: Inpatient hospitalization is medically necessary and the clinically appropriate intervention at this time. We will monitor medication to make changes as indicated. His likely length of stay 3-5 days. Coding Level of Care Code Acute Code for [facility] Diagnoses Suicidal ideation R45.851 Depression F32.A Paranoia F22 Psychosis F29
[2024-03-22 19:24] VITALS: BP 113/79; PULSE 69; RESP 18; TEMP 36.4; O2SAT 95
[2024-03-22] MEDS: OLANZapine 5 mg TABLET 15 MG PO (19:39)
[2024-03-22] MEDS: paliperidone ER 3 mg Tablet PO (19:39)
[2024-03-23 06:00] VITALS: BP 146/100; PULSE 77; RESP 18; TEMP 36.5; O2SAT 97
[2024-03-23] MEDS: fluoxetine 20 mg Capsule PO (09:02)
[2024-03-23] MEDS: propranolol 20 mg Tablet PO ×3 (09:02→20:17)
[2024-03-23 14:00] VITALS: BP 114/75; PULSE 83; RESP 16; TEMP 36.4; O2SAT 95
--- NOTE | 2024-03-23 16:52 | P.NPUPN_ITS ---
Subjective NPU 2 Subjective: 43-year-old male admitted with suicidal ideation with reports of compliance with his medications most recently discharged 10 days ago. The patient reports that he wished to return to live with his mother. He had stated that he struggled with being around people and stated that his current living situation was suboptimal. He had been reporting no hallucinations at this time. He had reported that he was not having thoughts of hurting himself. He stated that he was willing to consider working [place] at this [place]. Despite this, he later had mentioned thinking about living in a long term and reported minimal concern over potentially relapsing nor concern over the potential of being sent [facility] to [facility] if he violated his probation in any way. Mental Status Exam 2 MSE Comments: This is an obese white male in hospital scrubs with improved grooming and eye contact. No abnormal movements except for mildpsychomotor retardation. He was cooperative with exam in mild distress. Speech was mostly decreased in rate and diminished in volume with simple one word answers on interview. Mood described as okay. His affect was restricted in range and flat. Thought process was linear and mostly organized. Thought content: Patient endorsed suicidal ideation and denied homicidal ideation. There was no evidence of delusional thinking but he appeared guarded. He denied auditory and visual hallucinations. He denies any hallucinations or delusions. Attention and concentration were intact and memory appeared mostly reliable but none were formally tested. He is alert and oriented x 3. Insight and judgment limited, impulse control is limited. Vitals/I&O/Wt Last Vital Signs Temp 97.5 F L 03/23/24 14:00 Pulse 83 03/23/24 14:00 Resp 16 03/23/24 14:00 BP 114/75 03/23/24 14:00 Pulse Ox 95 03/23/24 14:00 O2 Del Method Room Air 03/23/24 06:00 Data NPU 03/20/24 13:31 03/20/24 13:31 A&P Assessment and plan (1) Suicidal ideation: (2) Depression: (3) Paranoia: (4) Psychosis: Plan This is a 43-year-old white male who presented denying significant mental health history till recently possibly. The patient is struggling with significant mental health issues, including depression, anxiety, and paranoia. Patient recently discharged less than 2 weeks ago and remains guarded regarding issues leading to worsening depression, suicidality and readmission here. 1. Continue Prozac at 20mg to target depression, continue olanzapine 15mg at night, and continue invega 3mg daily 2. Continue every 15 minute checks for safety. 3. Encourage individual, group and milieu therapies. 4. Obtain collateral information. 5. Encourage sober living treatment after discharge at the highest level of care to which he is willing to commit. Involuntary Hold Information 2 96 Hour Hold: 96 Hour Involuntary Admission: Yes 96 Hour Hold Ending Date: 03/25/24 96 Hour Hold Ending Time: 00:01 Attestations NPU 2 Medical Necessity Statement*: Inpatient hospitalization is medically necessary and the clinically appropriate intervention at this time. We will monitor medication to make changes as indicated. His likely length of stay 3-5 days. Coding Level of Care Code Acute Code for [facility] Fwd Diagnoses Suicidal ideation R45.851 Depression F32.A Paranoia F22 Psychosis F29
[2024-03-23] MEDS: OLANZapine 5 mg TABLET 15 MG PO (20:17)
[2024-03-23] MEDS: paliperidone ER 3 mg Tablet PO (20:18)
[2024-03-23 20:43] VITALS: BP 117/83; PULSE 73; RESP 18; TEMP 36.8; O2SAT 95
[2024-03-24 06:00] VITALS: BP 127/81; PULSE 69; RESP 15; TEMP 36.6; O2SAT 96
[2024-03-24] MEDS: nicotine 2 mg Gum BUCCAL (07:41)
[2024-03-24] MEDS: fluoxetine 20 mg Capsule PO (09:26)
[2024-03-24] MEDS: propranolol 20 mg Tablet PO ×2 (09:26→15:05)
[2024-03-24 13:50] VITALS: BP 127/81; PULSE 69; RESP 15; TEMP 36.6; O2SAT 96
--- NOTE | 2024-03-24 16:13 | P.NPUDS_ITS ---
Diagnoses at Discharge Discharge Diagnosis (1) Suicidal ideation: Status: Resolved (2) Depression: Status: Inactive (3) Paranoia: Status: Acute (4) Psychosis: Status: Acute Reason for Visit Reason for Visit: SI Brief History: History of Present Illness Herman Edmond Sr is a 43 year old male recently discharged from the neuropsychiatric unit on 03/11/2024 who presented to the emergency department complaining of suicidal ideation over the past 2 weeks. He had reported compliance with his previous treatment here 10 days ago and reports that he has been struggling with night terrors and reported that he was tired of living in a camper with his mother. He states that he had had repeated thoughts of getting a gun and shooting himself with it. He reports continued depression but denied any problems with paranoia. He had minimized any recent changes in his life since his discharge 10 days ago. He had reported having been traumatized in longterm and endorsed having experienced nightmares. He had denied any current hallucinations. He had requested having a prescription for Klonopin to help him but was nonspecific regarding how it may help him. The patient's urine drug screen was negative for alcohol and any other illicit substances. He had reported sobriety since his recent hospitalization. No substantiative changes were reported since his last hospitalization. Current medications: Paliperidone 6 mg daily, olanzapine 15 mg at night, Prozac 10 mg daily, propranolol 20 mg 3 times a day Excerpt from Previous NPU discharge summary on 03/11/24 History of Present Illness Herman Edmond Sr is a 43 year old male who presented to the emergency department with the following report: Chief Complaint: Psychiatric Symptoms Stated Complaint: SI Time Seen by Provider: 03/03/24 14:51 Mode of arrival: ambulatory Limitations: no limitations History of Present Illness: 41-year-old male 43-year-old male who st ates that has been having suicidal ideations over the last 2 weeks he states that he has a plan of cutting his wrist with a knife. He was recently admitted to [facility] he denies any worsening proving factors. Patient is currently on Prozac Associated symptoms: Reports depression and suicidal ideation. He was admitted to the neuropsychiatric unit for definitive treatment of those issues. He presents today unknown to the inpatient or outpatient services from any recent encounters. No known inpatient services here. He presents today reporting: Chief complaint The patient is struggling with feelings of paranoia and depression, and is having difficulty adjusting to society after being released from longterm. He is also experiencing sleep issues. History of the present complaint The patient, a 43-year-old male, presented with a history of depression and anxiety, which he reported began after his release from longterm. He has been struggling with adjusting to society after being incarcerated for 6.5 years. He has been hospitalized three times in the past three weeks due to suicidal ideation. The patient reported feeling paranoid and expressed a belief that everyone is out to get him. However, he denied experiencing hallucinations or hearing voices. He also mentioned experiencing nightmares related to his time in longterm. In terms of medication, the patient reported currently taking Prozac and Vistaril. He also mentioned previous use of a medication he referred to as Closet becker, which the doctor identified as possibly being clozapine or clonazepam. He also mentioned previous use of benzodiazepines. He expressed a desire for a recommendation for a good sleeping medication, as he has been struggling with sleep. The patient reported a history of substance use, including tobacco and alcohol. He mentioned having been in rehab once and having had a few DUIs. However, he reported that he has been abstaining from alcohol for several years now. The patient also mentioned a significant event in his life, the loss of a pair of expensive earbuds, which seemed to have a significant emotional impact on him. He did not elaborate on why this event was so impactful, but he brought it up multiple times during the consultation. In terms of his personal life, the patient reported having been once and having two adult sons. He mentioned that he had been in contact with his sons recently. He also mentioned experiencing significant changes in his life since his release from longterm, including the of his grandmother. The patient reported having no known allergies to medication. He expressed a desire for a recommendation for a good sleeping medication, as he has been struggling with sleep. He also expressed a desire for a recommendation for a medication to help with his feelings of paranoia. The doctor suggested starting him on Ambega and continuing with his current medications, Prozac and Vistaril. The doctor also suggested giving him Trazodone for his sleep issues. Mental health history The patient has a history of depression and anxiety, which began after his release from longterm. He has been hospitalized three times in the past three weeks due to suicidal ideation. He has been on Prozac and Vistaril, and has previously taken benzodiazepines for anxiety. He has also been on a mood stabilizer, possibly Clozapine. He has a history of outpatient treatment with a counselor or therapist. Social history The patient has a history of tobacco use and has previously struggled with alcohol consumption. He has been in rehab once and has had several DUIs. He has been incarcerated multiple times, with the longest sentence being 6.5 years. He has been homeless since his release from longterm. He has held a job for four years in the past, working at a [employer]. He has two biological children with whom he maintains a relationship. Hospital Course Hospital Course During the hospitalization, the patient had routine laboratory studies which were within normal limits except for a few outliers.? Additionally, there was a general medical evaluation which was also within normal limits and revealed no new acute processes.? At the time of discharge, lethality was denied and psychosis was not present. Mood and anxiety were well managed.? The patient endorsed a plan to avoid all drugs of abuse and follow up with the aftercare recommendations of the treatment team.? The patient was evaluated and deemed to be absent credible lethality and had achieved the maximum benefit from an inpatient hospitalization, and so was discharged. Invega was reduced from 6mg to 3mg a day with no adverse consequences. Prozac was increased to 20mg during his hospital stay. He had appeared minimally engaged in treatment overall. ? Involuntary Hold Information 96 Hour Hold: 96 Hour Involuntary Admission: Yes 96 Hour Hold Ending Date: 03/25/24 96 Hour Hold Ending Time: 00:01 Mental Status Exam MSE Comments: This is an obese white male in hospital scrubs with improved grooming and eye contact. No abnormal movements except for mildpsychomotor retardation. He was cooperative with exam in mild distress. Speech was mostly decreased in rate and diminished in volume with simple one word answers on interview. Mood described as good. His affect was restricted. Thought process was linear and mostly organized. Thought content: Patient denied suicidal ideation and denied homicidal ideation. There was no evidence of delusional thinking but he appeared guarded. He denied auditory and visual hallucinations. He denies any hallucinations or delusions. Attention and concentration were intact and memory appeared mostly reliable but none were formally tested. He is alert and oriented x 3. Insight is minimal and judgment appeared fair/poor. His impulse control is fair. Discharge Data Studies Completed and Pending: Laboratory Results WBC 6.68 10^3/uL (3.2 9-11.43) 03/20/24 13:31 RBC 4.51 10^6/uL (3.8 5-5.65) 03/20/24 13:31 Hgb 13.50 g/dL (11.27 -16.99) 03/20/24 13:31 Hct 41.2 % (37-53) 03/20/24 13:31 MCV 91.4 fl (82-101) 03/20/24 13:31 MCH 29.9 pg (27-33) 03/20/24 13:31 MCHC 32.8 g/dL (30-55) 03/20/24 13:31 RDW 13.3 % (12.1-15.1 ) 03/20/24 13:31 Plt Count 221 10^3/cmm (157 -399) 03/20/24 13:31 MPV 11.0 fL (7.4-10.4 ) H 03/20/24 13:31 Neut % (Auto) 55.4 % 03/20/24 13:31 Lymph % (Auto) 31.3 % 03/20/24 13:31 Hettinger % (Auto) 8.7 % 03/20/24 13:31 Eos % (Auto) 3.6 % 03/20/24 13:31 Baso % (Auto) 0.6 % 03/20/24 13:31 Neut # (Auto) 3.70 10^3/uL (1.8 -7.7) 03/20/24 13:31 Lymph # (Auto) 2.1 10^3/uL (0.8- 4.8) 03/20/24 13:31 Hettinger # (Auto) 0.6 10^3/uL (0.2- 0.9) 03/20/24 13:31 Eos # (Auto) 0.2 10^3/uL (0.0- 0.8) 03/20/24 13:31 Baso # (Auto) 0.0 10^3/uL (0.0- 0.1) 03/20/24 13:31 Nucleated RBC % (a uto) 0 % 03/20/24 13:31 Nucleated RBCs # 0.0 /100WBC 03/20/24 13:31 Sodium 139 mmol/L (136-1 45) 03/20/24 13:31 Potassium 3.8 mmol/L (3.5-5 .1) 03/20/24 13:31 Chloride 104 mmol/L (98-10 7) 03/20/24 13:31 Carbon Dioxide 25 mmol/L (22-29) 03/20/24 13:31 Anion Gap 13.8 (5-19) 03/20/24 13:31 BUN 15 mg/dL (6-20) 03/20/24 13:31 Creatinine 0.6 mg/dL (0.7-1. 2) L 03/20/24 13:31 GFR Calculation 148.5 mL/min (90- 130) H 03/20/24 13:31 Glucose 112 mg/dL (65-115 ) 03/20/24 13:31 Calculated Osmolal ity 290 mOsm/kg (285- 295) 03/20/24 13:31 Calcium 8.6 mg/dL (8.5-10 .5) 03/20/24 13:31 Total Bilirubin 0.3 mg/dL (0.15-1 .2) 03/20/24 13:31 AST 21 U/L (0-40) 03/20/24 13:31 ALT 14 U/L (0-41) 03/20/24 13:31 Alkaline Phosphata se 78 U/L (40-130) 03/20/24 13:31 Total Protein 6.3 g/dL (6.6-8.7 ) L 03/20/24 13:31 Albumin 3.9 g/dL (3.5-5.2 ) 03/20/24 13:31 Globulin 2.4 g/dL (1.3-4.6 ) 03/20/24 13:31 TSH 0.92 uIU/mL (0.27 -4.20) 03/20/24 13:31 Urine Color Yellow (Yellow) 03/20/24 12:50 Urine Appearance Clear (CLEAR) 03/20/24 12:50 Urine pH 6.0 (5-7) 03/20/24 12:50 Ur Specific Gravit y 1.031 (1.005-1.0 30) H 03/20/24 12:50 Urine Protein Negative (Negati ve) 03/20/24 12:50 Urine Glucose (UA) Negative (Normal ) 03/20/24 12:50 Urine Ketones Trace (Negative) 03/20/24 12:50 Urine Blood Negative (Negati ve) 03/20/24 12:50 Urine Nitrate Negative (Negati ve) 03/20/24 12:50 Urine Bilirubin Negative (Negati ve) 03/20/24 12:50 Urine Urobilinogen 1.0 mg/dL (Negati ve) 03/20/24 12:50 Ur Leukocyte Courtney ase Negative (Negati ve) 03/20/24 12:50 Urine RBC 0-2 /hpf (0-2) 03/20/24 12:50 Urine WBC 0-5 /hpf (0-5) 03/20/24 12:50 Ur Squamous Epith Cells 0-5 /hpf (0-5) 03/20/24 12:50 Amorphous Sediment Not Reportable 03/20/24 12:50 Urine Bacteria None seen /hpf (N ONE) 03/20/24 12:50 Hyaline Casts 4.11 /lpf 03/20/24 12:50 Salicylates < 0.3 mg/dL (3-10 ) L 03/20/24 13:31 Urine Opiates Scre en Negative ng/mL (N egative) 03/20/24 12:50 Acetaminophen < 5.0 ug/mL (10-3 0) L 03/20/24 13:31 Ur Barbiturates Sc reen Negative ng/mL (N egative) 03/20/24 12:50 Ur Phencyclidine S crn Negative ng/mL (N egative) 03/20/24 12:50 Ur Amphetamines Sc reen Negative ng/mL (N egative) 03/20/24 12:50 U Benzodiazepines Scrn Negative ng/mL (N egative) 03/20/24 12:50 Urine Cocaine Scre en Negative ng/mL (N egative) 03/20/24 12:50 U Marijuana (THC) Screen Negative ng/mL (N egative) 03/20/24 12:50 Ethyl Alcohol < 10 mg/dL (0-10) 03/20/24 13:31 Vitals: Last Vital Signs Temp 97.9 F 03/24/24 13:50 Pulse 69 03/24/24 13:50 Resp 15 03/24/24 13:50 BP 127/81 03/24/24 13:50 Pulse Ox 96 03/24/24 13:50 O2 Del Method Room Air 03/24/24 06:00 Discharge Plan Discharge Patient Disposition: Home Condition: Stable Prescriptions: New fluoxetine 20 mg Capsule 20 mg PO DAILY 30 Days Qty: 30 1RF paliperidone 3 mg Tablet Extended Release 24 Hr 3 mg PO BEDTIME 30 Days Qty: 30 1RF Continued olanzapine 15 mg tablet 15 mg PO BEDTIME 30 Days Qty: 30 1RF propranolol 20 mg tablet 20 mg PO TID PRN (Reason: mild anxiety) 30 Days Qty: 90 1RF Discontinued fluoxetine 10 mg capsule 10 mg PO DAILY paliperidone 6 mg tablet extended release 24 hr 6 mg PO BEDTIME Discharge Orders: Discharge Order (Routine); Ordered 03/24/24 Ordered By: Pedro Navarro Referrals: [facility] [Other] - 4-7 days (Walk in from Thursday through 7:30 am to 6:00 pm and Thursday 7:30 am to 3:00 pm. Bring insurance and photo id, list of medications and your discharge paperwork. ) [facility] [place] [Other] - 03/28/24 9:00 am (Establish care with Fransisco Fernandez NP. Primary Care will be Dr. Dent. ) [facility] [Other] Discharge Diet: Usual diet Discharge Activity: Resume usual activity Patient Instructions: Depression (DC), Anxiety (DC), Suicide Prevention (DC), Opioid Safety Discharge Attestations NPU Time Spent in Discharge Care*: less than 30 min Specific Discharge Activities: Specific discharge activities: educating patient, discussing with egg caser/social workers/dc planners and documenting/other paperwork Coding Level of Care Code Acute Code for g Fwd Diagnoses Suicidal ideation R45.851 Depression F32.A Paranoia F22 Psychosis F29
== END 2024-03-24 16:01 | disposition home or self-care (01) | DRG 881 ==
LOC: ER 12:57 → NP 14:10
PROVIDERS: Admitting Provider Psychiatry & Neurology Psychiatry; Emergency Provider Emergency Medicine; Visit Provider Psychiatry & Neurology Psychiatry
DX: F32.A Depression, unspecified (principal); R45.851 Suicidal ideations; F22 Delusional disorders; F29 Unspecified psychosis not due to a substance or known physiological condition; E66.9 Obesity, unspecified; F41.9 Anxiety disorder, unspecified; Z79.899 Other long term (current) drug therapy; Z68.33 Body mass index [BMI] 33.0-33.9, adult
CPT/HCPCS: 36415; 80053; 80306; 80307; 81001; 84443; 85025; 93005; 97165; 99285